=== PATIENT | male | born 1945 | race Caucasian/White ===

== ENCOUNTER 2023-05-17 11:24 | Emergency (ER) | payer MEDICARE ==
--- OUTSIDE RECORDS SUMMARY | 2023-05-17 11:29 | XMS REPORT | Continuity of Care Document ---
:1945 Author Organization [facility] t Address [address] [place] [address] [place] [id number] Care Team Providers Name Role Phone Aamir Rodarte Attending Clinician Unavailable Nathaniel Isaacs Attending Clinician Unavailable Ja Odonnell Attending Clinician Unavailable Physician, No Primary or Family Admitting Clinician UnavailNathaniel Anthony Admitting Clinician Unavailable Payers Payer Name Policy Type Policy Number Effective Date Expiration Date S [place] [id number] 2022 (MEDICARE 00:00:00 REPLACEMENT HMO) [employer] MEDICARE C1 [id number] 2021 Common 00:00:00 [facility] - [facility] Problems Condition Condition Condition Status Onset Resolution Last Treating Co mments Source Name Details Category Date Date Treatment Clinician Date [id number] Other Problem Common chronic [facility] pain - [facility] [id number] Body mass Problem Com mon index Spirit [BMI] - [facility] 31.0-31.9, [facility] [id number] Other Problem Common obesity Spirit due to - [facility] excess 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 - [facility] joints, [facility] Medical osteoarthr Center itis type [id number] Non-season Problem Com mon al [facility] allergic - [facility] rhinitis, [facility] [id number] Osteoporos Problem Com mon is, Spirit unspecifie - [facility] d osteoporos [facility], [facility] presence [id number] Chronic Problem Commo n gout [facility] without - [facility] tophus, [facility] cause, [facility] [id number] GERD Problem Common without [facility] esophagiti - [facility] [id number] Mixed Problem Common hyperlipid Spirit emia - [facility] [id number] Essential Problem Comm on hypertensi Spirit on - [facility] Allergies, Adverse Reactions, Alerts Allergy Allergy Status Severity Reaction(s) Onset Inactive Treating Comm ents Source Name Type Date Date Clinician No Known DA Active U [facility] Allergie 2-18 Clear s 00:00: Nguyen 00 [facility] Social History Social Habit Start Date Stop Date Quantity Comments Source History of Tobacco Current Smoker Co mmon [facility] - [facility] Use [facility] Sex Assigned At Com mon [facility] - [facility] Smoking Status Start Date Stop Date Source Current Smoker 2022-10-27 00:00:00 Common Spiri t - [facility] Medications Ordered Filled Start Stop Current Ordering Indication Dosage Frequency Signature Comments Components Source Medication Medication Date Date Medication? Clinician (SIG) Name Name Aspirin 81 Aspirin 81 No 1{table QD Aspirin 81 MG MG 8-16 t} MG 00:00: 00 Aspirin 81 Aspirin 81 No 1{table QD Aspirin 81 MG MG 8-16 t} MG 00:00: 00 Aspirin 81 Aspirin 81 2021- No 1{table QD Aspirin 81 MG MG 8-16 t} MG 00:00: 00 Aspirin 81 Aspirin 81 No 1{table QD Aspirin 81 MG MG 8-16 t} MG 00:00: 00 Aspirin 81 Aspirin 81 2021-0 No 1{table QD Aspirin 81 MG MG 8-16 t} MG 00:00: 00 Apixaban 5 Apixaban 5 No 2{table QD Apixaban 5 MG MG ts} MG Allopurinol Allopurinol No 2{table QD Allopurino 100 MG 100 MG ts} l 100 MG Lisinopril Lisinopril No 1{table QD Lisinopril 10 MG 10 MG t} 10 MG Tamsulosin Tamsulosin No 1{capsu QD Tamsulosin HCl 0.4 MG HCl 0.4 MG le} HCl 0.4 MG Gabapentin Gabapentin No 3{table QD Gabapentin 300 MG 300 MG ts} 300 MG Pantoprazol Pantoprazol No 1{table QD Pantoprazo e Sodium 20 e Sodium 20 t} le Sodium MG MG 20 MG Lisinopril Lisinopril No 1{table QD Lisinopril 10 MG 10 MG t} 10 MG Apixaban 5 Apixaban 5 No 2{table QD Apixaban 5 MG MG ts} MG Allopurinol Allopurinol No 2{table QD Allopurino 100 MG 100 MG ts} l 100 MG Metoprolol Metoprolol No 1{capsu QD Metoprolol Succinate Succinate le} Succinate 25 MG 25 MG 25 MG Pantoprazol Pantoprazol No 1{table QD Pantoprazo e Sodium 20 e Sodium 20 t} le Sodium MG MG 20 MG Tamsulosin Tamsulosin No 1{capsu QD Tamsulosin HCl 0.4 MG HCl 0.4 MG le} HCl 0.4 MG Allopurinol Allopurinol No 2{table QD Allopurino 100 MG 100 MG ts} l 100 MG Apixaban 5 Apixaban 5 No 2{table QD Apixaban 5 MG MG ts} MG Lisinopril Lisinopril No 1{table QD Lisinopril 10 MG 10 MG t} 10 MG Gabapentin Gabapentin No 3{table QD Gabapentin 300 MG 300 MG ts} 300 MG Metoprolol Metoprolol No 1{capsu QD Metoprolol Succinate Succinate le} Succinate 25 MG 25 MG 25 MG Tamsulosin Tamsulosin No 1{capsu QD Tamsulosin HCl 0.4 MG HCl 0.4 MG le} HCl 0.4 MG Gabapentin Gabapentin No 3{table QD Gabapentin 300 MG 300 MG ts} 300 MG Pantoprazol Pantoprazol No 1{table QD Pantoprazo e Sodium 20 e Sodium 20 t} le Sodium MG MG 20 MG Lisinopril Lisinopril No 1{table QD Lisinopril 10 MG 10 MG t} 10 MG Apixaban 5 Apixaban 5 No 2{table QD Apixaban 5 MG MG ts} MG Metoprolol Metoprolol No 1{capsu QD Metoprolol Succinate Succinate le} Succinate 25 MG 25 MG 25 MG Tamsulosin Tamsulosin No 1{capsu QD Tamsulosin HCl 0.4 MG HCl 0.4 MG le} HCl 0.4 MG Gabapentin Gabapentin No 3{table QD Gabapentin 300 MG 300 MG ts} 300 MG Pantoprazol Pantoprazol No 1{table QD Pantoprazo e Sodium 20 e Sodium 20 t} le Sodium MG MG 20 MG Lisinopril Lisinopril No 1{table QD Lisinopril 10 MG 10 MG t} 10 MG Apixaban 5 Apixaban 5 No 2{table QD Apixaban 5 MG MG ts} MG Metoprolol Metoprolol No 1{capsu QD Metoprolol Succinate Succinate le} Succinate 25 MG 25 MG 25 MG Lisinopril Lisinopril No 1{table QD Lisinopril 10 MG 10 MG t} 10 MG Gabapentin Gabapentin No 3{table QD Gabapentin 300 MG 300 MG ts} 300 MG Apixaban 5 Apixaban 5 No 2{table QD Apixaban 5 MG MG ts} MG Metoprolol Metoprolol No 1{capsu QD Metoprolol Succinate Succinate le} Succinate 25 MG 25 MG 25 MG Pantoprazol Pantoprazol No 1{table QD Pantoprazo e Sodium 20 e Sodium 20 t} le Sodium MG MG 20 MG Tamsulosin Tamsulosin No 1{capsu QD Tamsulosin HCl 0.4 MG HCl 0.4 MG le} HCl 0.4 MG Pantoprazol Pantoprazol No 1{table QD Pantoprazo e Sodium 20 e Sodium 20 t} le Sodium MG MG 20 MG Gabapentin Gabapentin No 3{table QD Gabapentin 300 MG 300 MG ts} 300 MG Apixaban 5 Apixaban 5 No 2{table QD Apixaban 5 MG MG ts} MG Lisinopril Lisinopril No 1{table QD Lisinopril 10 MG 10 MG t} 10 MG Metoprolol Metoprolol No 1{capsu QD Metoprolol Succinate Succinate le} Succinate 25 MG 25 MG 25 MG Tamsulosin Tamsulosin No 1{capsu QD Tamsulosin HCl 0.4 MG HCl 0.4 MG le} HCl 0.4 MG Pantoprazol Pantoprazol No 1{table QD Pantoprazo e Sodium 20 e Sodium 20 t} le Sodium MG MG 20 MG Gabapentin Gabapentin No 3{table QD Gabapentin 300 MG 300 MG ts} 300 MG Apixaban 5 Apixaban 5 No 2{table QD Apixaban 5 MG MG ts} MG Lisinopril Lisinopril No 1{table QD Lisinopril 10 MG 10 MG t} 10 MG Metoprolol Metoprolol No 1{capsu QD Metoprolol Succinate Succinate le} Succinate 25 MG 25 MG 25 MG Tamsulosin Tamsulosin No 1{capsu QD Tamsulosin HCl 0.4 MG HCl 0.4 MG le} HCl 0.4 MG Pantoprazol Pantoprazol No 1{table QD Pantoprazo e Sodium 20 e Sodium 20 t} le Sodium MG MG 20 MG Apixaban 5 Apixaban 5 No 2{table QD Apixaban 5 MG MG ts} MG Lisinopril Lisinopril No 1{table QD Lisinopril 10 MG 10 MG t} 10 MG Metoprolol Metoprolol No 1{capsu QD Metoprolol Succinate Succinate le} Succinate 25 MG 25 MG 25 MG Gabapentin Gabapentin No 3{table QD Gabapentin 300 MG 300 MG ts} 300 MG Allopurinol Allopurinol No 2{table QD Allopurino 100 MG 100 MG ts} l 100 MG Apixaban 5 Apixaban 5 No 2{table QD Apixaban 5 MG MG ts} MG Pantoprazol Pantoprazol No 1{table QD Pantoprazo e Sodium 20 e Sodium 20 t} le Sodium MG MG 20 MG Metoprolol Metoprolol No 1{capsu QD Metoprolol Succinate Succinate le} Succinate 25 MG 25 MG 25 MG Gabapentin Gabapentin No 3{table QD Gabapentin 300 MG 300 MG ts} 300 MG Tamsulosin Tamsulosin No 1{capsu QD Tamsulosin HCl 0.4 MG HCl 0.4 MG le} HCl 0.4 MG Lisinopril Lisinopril No 1{table QD Lisinopril 10 MG 10 MG t} 10 MG Allopurinol Allopurinol No 2{table QD Allopurino 100 MG 100 MG ts} l 100 MG Apixaban 5 Apixaban 5 No 2{table QD Apixaban 5 MG MG ts} MG Pantoprazol Pantoprazol No 1{table QD Pantoprazo e Sodium 20 e Sodium 20 t} le Sodium MG MG 20 MG Metoprolol Metoprolol No 1{capsu QD Metoprolol Succinate Succinate le} Succinate 25 MG 25 MG 25 MG Gabapentin Gabapentin No 3{table QD Gabapentin 300 MG 300 MG ts} 300 MG Tamsulosin Tamsulosin No 1{capsu QD Tamsulosin HCl 0.4 MG HCl 0.4 MG le} HCl 0.4 MG Lisinopril Lisinopril No 1{table QD Lisinopril 10 MG 10 MG t} 10 MG Allopurinol Allopurinol No 2{table QD Allopurino 100 MG 100 MG ts} l 100 MG Apixaban 5 Apixaban 5 No 2{table QD Apixaban 5 MG MG ts} MG Pantoprazol Pantoprazol No 1{table QD Pantoprazo e Sodium 20 e Sodium 20 t} le Sodium MG MG 20 MG Metoprolol Metoprolol No 1{capsu QD Metoprolol Succinate Succinate le} Succinate 25 MG 25 MG 25 MG Gabapentin Gabapentin No 3{table QD Gabapentin 300 MG 300 MG ts} 300 MG Tamsulosin Tamsulosin No 1{capsu QD Tamsulosin HCl 0.4 MG HCl 0.4 MG le} HCl 0.4 MG Lisinopril Lisinopril No 1{table QD Lisinopril 10 MG 10 MG t} 10 MG Allopurinol Allopurinol No 2{table QD Allopurino 100 MG 100 MG ts} l 100 MG Apixaban 5 Apixaban 5 No 2{table QD Apixaban 5 MG MG ts} MG Pantoprazol Pantoprazol No 1{table QD Pantoprazo e Sodium 20 e Sodium 20 t} le Sodium MG MG 20 MG Metoprolol Metoprolol No 1{capsu QD Metoprolol Succinate Succinate le} Succinate 25 MG 25 MG 25 MG Gabapentin Gabapentin No 3{table QD Gabapentin 300 MG 300 MG ts} 300 MG Tamsulosin Tamsulosin No 1{capsu QD Tamsulosin HCl 0.4 MG HCl 0.4 MG le} HCl 0.4 MG Lisinopril Lisinopril No 1{table QD Lisinopril 10 MG 10 MG t} 10 MG Allopurinol Allopurinol No 2{table QD Allopurino 100 MG 100 MG ts} l 100 MG Apixaban 5 Apixaban 5 No 2{table QD Apixaban 5 MG MG ts} MG Lisinopril Lisinopril No 1{table QD Lisinopril 10 MG 10 MG t} 10 MG Metoprolol Metoprolol No 1{capsu QD Metoprolol Succinate Succinate le} Succinate 25 MG 25 MG 25 MG Gabapentin Gabapentin No 3{table QD Gabapentin 300 MG 300 MG ts} 300 MG Tamsulosin Tamsulosin No 1{capsu QD Tamsulosin HCl 0.4 MG HCl 0.4 MG le} HCl 0.4 MG Pantoprazol Pantoprazol No 1{table QD Pantoprazo e Sodium 20 e Sodium 20 t} le Sodium MG MG 20 MG Allopurinol Allopurinol No 2{table QD Allopurino 100 MG 100 MG ts} l 100 MG Apixaban 5 Apixaban 5 No 2{table QD Apixaban 5 MG MG ts} MG Lisinopril Lisinopril No 1{table QD Lisinopril 10 MG 10 MG t} 10 MG Metoprolol Metoprolol No 1{capsu QD Metoprolol Succinate Succinate le} Succinate 25 MG 25 MG 25 MG Gabapentin Gabapentin No 3{table QD Gabapentin 300 MG 300 MG ts} 300 MG Pantoprazol Pantoprazol No 1{table QD Pantoprazo e Sodium 20 e Sodium 20 t} le Sodium MG MG 20 MG Plavix 75 Plavix 75 No 1{table QD Plavix 75 MG MG t} MG Tamsulosin Tamsulosin No 1{capsu QD Tamsulosin HCl 0.4 MG HCl 0.4 MG le} HCl 0.4 MG Allopurinol Allopurinol No 2{table QD Allopurino 100 MG 100 MG ts} l 100 MG Metoprolol Metoprolol No 1{capsu QD Metoprolol Succinate Succinate le} Succinate 25 MG 25 MG 25 MG Pantoprazol Pantoprazol No 1{table QD Pantoprazo e Sodium 20 e Sodium 20 t} le Sodium MG MG 20 MG Lisinopril Lisinopril No 1{table QD Lisinopril 10 MG 10 MG t} 10 MG Gabapentin Gabapentin No 3{table QD Gabapentin 300 MG 300 MG ts} 300 MG Lisinopril Lisinopril No Lisinopril 10 MG 10 MG 10 MG Plavix 75 Plavix 75 No 1{table QD Plavix 75 MG MG t} MG Tamsulosin Tamsulosin No 1{capsu QD Tamsulosin HCl 0.4 MG HCl 0.4 MG le} HCl 0.4 MG Pantoprazol Pantoprazol No 1{table QD Pantoprazo e Sodium 20 e Sodium 20 t} le Sodium MG MG 20 MG Metoprolol Metoprolol No 1{capsu QD Metoprolol Succinate Succinate le} Succinate 25 MG 25 MG 25 MG Gabapentin Gabapentin No 3{table QD Gabapentin 300 MG 300 MG ts} 300 MG Lisinopril Lisinopril No 1{table QD Lisinopril 10 MG 10 MG t} 10 MG Allopurinol Allopurinol No 2{table QD Allopurino 100 MG 100 MG ts} l 100 MG Lisinopril Lisinopril No Lisinopril 10 MG 10 MG 10 MG Gabapentin Gabapentin No 3{table QD Gabapentin 300 MG 300 MG ts} 300 MG Plavix 75 Plavix 75 No 1{table QD Plavix 75 MG MG t} MG Lisinopril Lisinopril No Lisinopril 10 MG 10 MG 10 MG Tamsulosin Tamsulosin No 1{capsu QD Tamsulosin HCl 0.4 MG HCl 0.4 MG le} HCl 0.4 MG Allopurinol Allopurinol No 2{table QD Allopurino 100 MG 100 MG ts} l 100 MG Lisinopril Lisinopril No 1{table QD Lisinopril 10 MG 10 MG t} 10 MG Pantoprazol Pantoprazol No 1{table QD Pantoprazo e Sodium 20 e Sodium 20 t} le Sodium MG MG 20 MG Metoprolol Metoprolol No 1{capsu QD Metoprolol Succinate Succinate le} Succinate 25 MG 25 MG 25 MG Gabapentin Gabapentin No 3{table QD Gabapentin 300 MG 300 MG ts} 300 MG Pantoprazol Pantoprazol No 1{table QD Pantoprazo e Sodium 20 e Sodium 20 t} le Sodium MG MG 20 MG Metoprolol Metoprolol No 1{capsu QD Metoprolol Succinate Succinate le} Succinate 25 MG 25 MG 25 MG Tamsulosin Tamsulosin No 1{capsu QD Tamsulosin HCl 0.4 MG HCl 0.4 MG le} HCl 0.4 MG Allopurinol Allopurinol No 2{table QD Allopurino 100 MG 100 MG ts} l 100 MG Lisinopril Lisinopril No 1{table QD Lisinopril 10 MG 10 MG t} 10 MG Plavix 75 Plavix 75 No 1{table QD Plavix 75 MG MG t} MG Lisinopril Lisinopril No Lisinopril 10 MG 10 MG 10 MG Pantoprazol Pantoprazol No 1{table QD Pantoprazo e Sodium 20 e Sodium 20 t} le Sodium MG MG 20 MG Lisinopril Lisinopril No Lisinopril 10 MG 10 MG 10 MG Aspirin 81 Aspirin 81 No 1{table QD Aspirin 81 MG MG t} MG Plavix 75 Plavix 75 No 1{table QD Plavix 75 MG MG t} MG Lisinopril Lisinopril No 1{table QD Lisinopril 10 MG 10 MG t} 10 MG Tamsulosin Tamsulosin No 1{capsu QD Tamsulosin HCl 0.4 MG HCl 0.4 MG le} HCl 0.4 MG Gabapentin Gabapentin No 3{table QD Gabapentin 300 MG 300 MG ts} 300 MG Allopurinol Allopurinol No 2{table QD Allopurino 100 MG 100 MG ts} l 100 MG Metoprolol Metoprolol No 1{capsu QD Metoprolol Succinate Succinate le} Succinate 25 MG 25 MG 25 MG Pantoprazol Pantoprazol No 1{table QD Pantoprazo e Sodium 20 e Sodium 20 t} le Sodium MG MG 20 MG Lisinopril Lisinopril No Lisinopril 10 MG 10 MG 10 MG Aspirin 81 Aspirin 81 No 1{table QD Aspirin 81 MG MG t} MG Plavix 75 Plavix 75 No 1{table QD Plavix 75 MG MG t} MG Lisinopril Lisinopril No 1{table QD Lisinopril 10 MG 10 MG t} 10 MG Tamsulosin Tamsulosin No 1{capsu QD Tamsulosin HCl 0.4 MG HCl 0.4 MG le} HCl 0.4 MG Gabapentin Gabapentin No 3{table QD Gabapentin 300 MG 300 MG ts} 300 MG Allopurinol Allopurinol No 2{table QD Allopurino 100 MG 100 MG ts} l 100 MG Metoprolol Metoprolol No 1{capsu QD Metoprolol Succinate Succinate le} Succinate 25 MG 25 MG 25 MG Pantoprazol Pantoprazol No 1{table QD Pantoprazo e Sodium 20 e Sodium 20 t} le Sodium MG MG 20 MG Lisinopril Lisinopril No Lisinopril 10 MG 10 MG 10 MG Aspirin 81 Aspirin 81 No 1{table QD Aspirin 81 MG MG t} MG Plavix 75 Plavix 75 No 1{table QD Plavix 75 MG MG t} MG Lisinopril Lisinopril No 1{table QD Lisinopril 10 MG 10 MG t} 10 MG Tamsulosin Tamsulosin No 1{capsu QD Tamsulosin HCl 0.4 MG HCl 0.4 MG le} HCl 0.4 MG Gabapentin Gabapentin No 3{table QD Gabapentin 300 MG 300 MG ts} 300 MG Allopurinol Allopurinol No 2{table QD Allopurino 100 MG 100 MG ts} l 100 MG Metoprolol Metoprolol No 1{capsu QD Metoprolol Succinate Succinate le} Succinate 25 MG 25 MG 25 MG Pantoprazol Pantoprazol No 1{table QD Pantoprazo e Sodium 20 e Sodium 20 t} le Sodium MG MG 20 MG Lisinopril Lisinopril No Lisinopril 10 MG 10 MG 10 MG Metoprolol Metoprolol No 1{capsu QD Metoprolol Succinate Succinate le} Succinate 25 MG 25 MG 25 MG Aspirin 81 Aspirin 81 No 1{table QD Aspirin 81 MG MG t} MG Lisinopril Lisinopril No 1{table QD Lisinopril 10 MG 10 MG t} 10 MG Tamsulosin Tamsulosin No 1{capsu QD Tamsulosin HCl 0.4 MG HCl 0.4 MG le} HCl 0.4 MG Gabapentin Gabapentin No 3{table QD Gabapentin 300 MG 300 MG ts} 300 MG Plavix 75 Plavix 75 No 1{table QD Plavix 75 MG MG t} MG Tamsulosin Tamsulosin No 1{capsu QD Tamsulosin HCl 0.4 MG HCl 0.4 MG le} HCl 0.4 MG Lisinopril Lisinopril No Lisinopril 10 MG 10 MG 10 MG Metoprolol Metoprolol No 1{capsu QD Metoprolol Succinate Succinate le} Succinate 25 MG 25 MG 25 MG Lisinopril Lisinopril No 1{table QD Lisinopril 10 MG 10 MG t} 10 MG Plavix 75 Plavix 75 No 1{table QD Plavix 75 MG MG t} MG Gabapentin Gabapentin No 3{table QD Gabapentin 300 MG 300 MG ts} 300 MG Aspirin 81 Aspirin 81 No 1{table QD Aspirin 81 MG MG t} MG Pantoprazol Pantoprazol No 1{table QD Pantoprazo e Sodium 20 e Sodium 20 t} le Sodium MG MG 20 MG Lisinopril Lisinopril No Lisinopril 10 MG 10 MG 10 MG Metoprolol Metoprolol No 1{capsu QD Metoprolol Succinate Succinate le} Succinate 25 MG 25 MG 25 MG Lisinopril Lisinopril No 1{table QD Lisinopril 10 MG 10 MG t} 10 MG Plavix 75 Plavix 75 No 1{table QD Plavix 75 MG MG t} MG Gabapentin Gabapentin No 3{table QD Gabapentin 300 MG 300 MG ts} 300 MG Aspirin 81 Aspirin 81 No 1{table QD Aspirin 81 MG MG t} MG Pantoprazol Pantoprazol No 1{table QD Pantoprazo e Sodium 20 e Sodium 20 t} le Sodium MG MG 20 MG Lisinopril Lisinopril No Lisinopril 10 MG 10 MG 10 MG Metoprolol Metoprolol No 1{capsu QD Metoprolol Succinate Succinate le} Succinate 25 MG 25 MG 25 MG Lisinopril Lisinopril No 1{table QD Lisinopril 10 MG 10 MG t} 10 MG Plavix 75 Plavix 75 No 1{table QD Plavix 75 MG MG t} MG Gabapentin Gabapentin No 3{table QD Gabapentin 300 MG 300 MG ts} 300 MG Aspirin 81 Aspirin 81 No 1{table QD Aspirin 81 MG MG t} MG Pantoprazol Pantoprazol No 1{table QD Pantoprazo e Sodium 20 e Sodium 20 t} le Sodium MG MG 20 MG Gabapentin Gabapentin No 3{table QD Gabapentin 300 MG 300 MG ts} 300 MG Lisinopril Lisinopril No 1{table QD Lisinopril 10 MG 10 MG t} 10 MG Pantoprazol Pantoprazol No 1{table QD Pantoprazo e Sodium 20 e Sodium 20 t} le Sodium MG MG 20 MG Plavix 75 Plavix 75 No 1{table QD Plavix 75 MG MG t} MG Lisinopril Lisinopril No Lisinopril 10 MG 10 MG 10 MG Metoprolol Metoprolol No 1{capsu QD Metoprolol Succinate Succinate le} Succinate 25 MG 25 MG 25 MG Aspirin 81 Aspirin 81 No 1{table QD Aspirin 81 MG MG t} MG Metoprolol Metoprolol No 1{capsu QD Metoprolol Succinate Succinate le} Succinate 25 MG 25 MG 25 MG Gabapentin Gabapentin No 3{table QD Gabapentin 300 MG 300 MG ts} 300 MG Lisinopril Lisinopril No 1{table QD Lisinopril 10 MG 10 MG t} 10 MG Lisinopril Lisinopril No Lisinopril 10 MG 10 MG 10 MG Gabapentin Gabapentin No 3{table QD Gabapentin 300 MG 300 MG ts} 300 MG Pantoprazol Pantoprazol No 1{table QD Pantoprazo e Sodium 20 e Sodium 20 t} le Sodium MG MG 20 MG Tamsulosin Tamsulosin No 1{capsu QD Tamsulosin HCl 0.4 MG HCl 0.4 MG le} HCl 0.4 MG Aspirin 81 Aspirin 81 No 1{table QD Aspirin 81 MG MG t} MG Allopurinol Allopurinol No 2{table QD Allopurino 100 MG 100 MG ts} l 100 MG Plavix 75 Plavix 75 No 1{table QD Plavix 75 MG MG t} MG Plavix 75 Plavix 75 No 1{table QD Plavix 75 MG MG t} MG Lisinopril Lisinopril No Lisinopril 10 MG 10 MG 10 MG Tamsulosin Tamsulosin No 1{capsu QD Tamsulosin HCl 0.4 MG HCl 0.4 MG le} HCl 0.4 MG Allopurinol Allopurinol No 2{table QD Allopurino 100 MG 100 MG ts} l 100 MG Lisinopril Lisinopril No 1{table QD Lisinopril 10 MG 10 MG t} 10 MG Pantoprazol Pantoprazol No 1{table QD Pantoprazo e Sodium 20 e Sodium 20 t} le Sodium MG MG 20 MG Metoprolol Metoprolol No 1{capsu QD Metoprolol Succinate Succinate le} Succinate 25 MG 25 MG 25 MG Gabapentin Gabapentin No 3{table QD Gabapentin 300 MG 300 MG ts} 300 MG Metoprolol Metoprolol No 1{capsu QD Metoprolol Succinate Succinate le} Succinate 25 MG 25 MG 25 MG Pantoprazol Pantoprazol No 1{table QD Pantoprazo e Sodium 20 e Sodium 20 t} le Sodium MG MG 20 MG Apixaban 5 Apixaban 5 No 2{table QD Apixaban 5 MG MG ts} MG Allopurinol Allopurinol No 2{table QD Allopurino 100 MG 100 MG ts} l 100 MG Lisinopril Lisinopril No 1{table QD Lisinopril 10 MG 10 MG t} 10 MG Tamsulosin Tamsulosin No 1{capsu QD Tamsulosin HCl 0.4 MG HCl 0.4 MG le} HCl 0.4 MG Gabapentin Gabapentin No 3{table QD Gabapentin 300 MG 300 MG ts} 300 MG Metoprolol Metoprolol No 1{capsu QD Metoprolol Succinate Succinate le} Succinate 25 MG 25 MG 25 MG Pantoprazol Pantoprazol No 1{table QD Pantoprazo e Sodium 20 e Sodium 20 t} le Sodium MG MG 20 MG Tamsulosin Tamsulosin 3- No 1{capsu QD Tamsulosin HCl 0.4 MG HCl 0.4 MG 12-19 le} HCl 0.4 MG 00:00 :00 Tamsulosin Tamsulosin 3- No 1{capsu QD Tamsulosin HCl 0.4 MG HCl 0.4 MG 12-19 le} HCl 0.4 MG 00:00 :00 Tamsulosin Tamsulosin 3- No 1{capsu QD Tamsulosin HCl 0.4 MG HCl 0.4 MG 12-19 le} HCl 0.4 MG 00:00 :00 Allopurinol Allopurinol 3- No 2{table QD Allopurino 100 MG 100 MG 11-11 ts} l 100 MG 00:00 :00 Allopurinol Allopurinol 3- No 2{table QD Allopurino 100 MG 100 MG 11-11 ts} l 100 MG 00:00 :00 Allopurinol Allopurinol 3- No 2{table QD Allopurino 100 MG 100 MG 11-11 ts} l 100 MG 00:00 :00 Allopurinol Allopurinol 3- No 2{table QD Allopurino 100 MG 100 MG 11-11 ts} l 100 MG 00:00 :00 Allopurinol Allopurinol 3- No 2{table QD Allopurino 100 MG 100 MG 11-11 ts} l 100 MG 00:00 :00 Tamsulosin Tamsulosin 2- No 1{capsu QD Tamsulosin HCl 0.4 MG HCl 0.4 MG 07-02 le} HCl 0.4 MG 00:00 :00 Tamsulosin Tamsulosin 2- No 1{capsu QD Tamsulosin HCl 0.4 MG HCl 0.4 MG 04-05 le} HCl 0.4 MG 00:00 :00 Allopurinol Allopurinol 2- No 2{table QD Allopurino 100 MG 100 MG 01-12 ts} l 100 MG 00:00 :00 Allopurinol Allopurinol 2021- No 2{table QD Allopurino 100 MG 100 MG 01-12 ts} l 100 MG 00:00 :00 Allopurinol Allopurinol 2021- No 2{table QD Allopurino 100 MG 100 MG 01-12 ts} l 100 MG 00:00 :00 Allopurinol Allopurinol 2021- No 2{table QD Allopurino 100 MG 100 MG 01-12 ts} l 100 MG 00:00 :00 Allopurinol Allopurinol 2021- No 2{table QD Allopurino 100 MG 100 MG 01-12 ts} l 100 MG 00:00 :00 Allopurinol Allopurinol 2021- No 2{table QD Allopurino 100 MG 100 MG 01-12 ts} l 100 MG 00:00 :00 Tamsulosin Tamsulosin 2021- No 1{capsu QD Tamsulosin HCl 0.4 MG HCl 0.4 MG 12-28 le} HCl 0.4 MG 00:00 :00 Immunizations Ordered Immunization Filled Immunization Date Status Commen ts Source Name Name FLUZONE HIGH DOSE FLUZONE HIGH DOSE 2022-07-13 Completed [facility] OVER 65 OVER 65 09:38:00 - [facility] FLUZONE HIGH DOSE FLUZONE HIGH DOSE 2022-07-13 Completed [facility] OVER 65 OVER 65 09:38:00 - [facility] FLUZONE HIGH DOSE FLUZONE HIGH DOSE 2022-07-13 Completed [facility] OVER 65 OVER 65 09:38:00 [facility] FLUZONE HIGH DOSE FLUZONE HIGH DOSE 2022-07-13 Completed [facility] OVER 65 OVER 65 09:38:00 - [facility] FLUZONE HIGH DOSE FLUZONE HIGH DOSE 2022-07-13 Completed [facility] OVER 65 OVER 65 09:38:00 - [facility] FLUZONE HIGH DOSE FLUZONE HIGH DOSE 2022-07-13 Completed [facility] OVER 65 OVER 65 09:38:00 - [facility] FLUZONE HIGH DOSE FLUZONE HIGH DOSE 2022-07-13 Completed [facility] OVER 65 OVER 65 09:38:00 [facility] FLUZONE HIGH DOSE FLUZONE HIGH DOSE 2022-07-13 Completed [facility] OVER 65 OVER 65 09:38:00 [facility] FLUZONE HIGH DOSE FLUZONE HIGH DOSE 2022-07-13 Completed [facility] OVER 65 OVER 65 09:38:00 - [facility] FLUZONE HIGH DOSE FLUZONE HIGH DOSE 2022-07-13 Completed [facility] OVER 65 OVER 65 09:38:00 - [facility] FluAD FluAD 2020-07-24 Completed [facility] 13:56:00 - [facility] FluAD FluAD 2020-07-24 Completed [facility] 13:56:00 - [facility] FluAD FluAD 2020-07-24 Completed [facility] 13:56:00 - [facility] FluAD FluAD 2020-07-24 Completed [facility] 13:56:00 - [facility] FluAD FluAD 2020-07-24 Completed [facility] 13:56:00 - [facility] FluAD FluAD 2020-07-24 Completed [facility] 13:56:00 - [facility] FluAD FluAD 2020-07-24 Completed [facility] 13:56:00 - [facility] FluAD FluAD 2020-07-24 Completed [facility] 13:56:00 - [facility] FluAD FluAD 2020-07-24 [facility]pleted [facility] FluAD FluAD 2020-07-24 Completed [facility]:56:00 - [facility] FluAD FluAD 2020-07-24 Completed [facility]:56:00 - [facility] FluAD FluAD 2020-07-24 Completed [facility] 13:56:00 - [facility] FluAD FluAD 2020-07-24 Completed [facility]:56:00 - [facility] FluAD FluAD 2020-07-24 Completed [facility]:56:00 - [facility] FluAD FluAD 2020-07-24 Completed [facility]:56:00 - [facility] FluAD FluAD 2020-07-24 Completed [facility]:56:00 - [facility] FluAD FluAD 2020-07-24 Completed [facility]:56:00 - [facility] FluAD FluAD 2020-07-24 Completed [facility]:56:00 - [facility] FluAD FluAD 2020-07-24 Completed [facility] 13:56:00 - [facility] FluAD FluAD 2020-07-24 Completed [facility] 13:56:00 - [facility] FluAD FluAD 2020-07-24 Completed [facility]:56:00 - [facility] FluAD FluAD 2020-07-24 Completed [facility]:56:00 - [facility] FluAD FluAD 2020-07-24 Completed [facility]:56:00 - [facility] FluAD FluAD 2020-07-24 Completed [facility] 13:56:00 - [facility] FluAD FluAD 2020-07-24 Completed [facility]:56:00 - [facility] FluAD FluAD 2020-07-24 Completed [facility]:56:00 - [facility] FluAD FluAD 2020-07-24 Completed [facility]:56:00 - [facility] FluAD FluAD 2020-07-24 Completed [facility] 13:56:00 - [facility] FluAD FluAD 2020-07-24 Completed [facility]:56:00 - [facility] FluAD FluAD 2020-07-24 Completed [facility]:56:00 - [facility] Prevnar 13 (PCV13) Prevnar 13 (PCV13) 2016-09-23 Completed [facility]:56:00 - [facility] Prevnar 13 (PCV13) Prevnar 13 (PCV13) 2016-09-23 Completed [facility]:56:00 - [facility] Prevnar 13 (PCV13) Prevnar 13 (PCV13) 2016-09-23 Completed [facility]:56:00 - [facility] Prevnar 13 (PCV13) Prevnar 13 (PCV13) 2016-09-23 Completed [facility]:56:00 - [facility] Prevnar 13 (PCV13) Prevnar 13 (PCV13) 2016-09-23 Completed [facility] 13:56:00 [facility] Prevnar 13 (PCV13) Prevnar 13 (PCV13) 2016-09-23 Completed [facility]:56:00 - [facility] Prevnar 13 (PCV13) Prevnar 13 (PCV13) 2016-09-23 Completed [facility]:56:00 - [facility] Prevnar 13 (PCV13) Prevnar 13 (PCV13) 2016-09-23 [facility]pleted [facility] 13:56:00 [facility] Prevnar 13 (PCV13) Prevnar 13 (PCV13) 2016-09-23 Completed [facility] 13:56:00 [facility] Prevnar 13 (PCV13) Prevnar 13 (PCV13) 2016-09-23 Completed [facility]:56:00 - [facility] Prevnar 13 (PCV13) Prevnar 13 (PCV13) 2016-09-23 [facility]pleted [facility]:56:00 [facility] Prevnar 13 (PCV13) Prevnar 13 (PCV13) 2016-09-23 Completed [facility]:56:00 - [facility] Prevnar 13 (PCV13) Prevnar 13 (PCV13) 2016-09-23 [facility]pleted [facility]:56:00 - [facility] Prevnar 13 (PCV13) Prevnar 13 (PCV13) 2016-09-23 [facility]pleted [facility]:56:00 - [facility] Prevnar 13 (PCV13) Prevnar 13 (PCV13) 2016-09-23 [facility]pleted [facility]:56:00 - [facility] Prevnar 13 (PCV13) Prevnar 13 (PCV13) 2016-09-23 [facility]pleted [facility]:56:00 [facility] Prevnar 13 (PCV13) Prevnar 13 (PCV13) 2016-09-23 [facility]pleted [facility]:56:00 [facility] Prevnar 13 (PCV13) Prevnar 13 (PCV13) 2016-09-23 [facility]pleted [facility]:56:00 [facility] Prevnar 13 (PCV13) Prevnar 13 (PCV13) 2016-09-23 [facility]pleted [facility] 13:56:00 [facility] Prevnar 13 (PCV13) Prevnar 13 (PCV13) 2016-09-23 [facility]pleted [facility] 13:56:00 [facility] Prevnar 13 (PCV13) Prevnar 13 (PCV13) 2016-09-23 Completed [facility]:56:00 - [facility] Prevnar 13 (PCV13) Prevnar 13 (PCV13) 2016-09-23 Completed [facility]:56:00 - [facility] Prevnar 13 (PCV13) Prevnar 13 (PCV13) 2016-09-23 [facility]pleted [facility]:56:00 - [facility] Prevnar 13 (PCV13) Prevnar 13 (PCV13) 2016-09-23 [facility]pleted [facility]:56:00 - [facility] Prevnar 13 (PCV13) Prevnar 13 (PCV13) 2016-09-23 [facility]pleted [facility]:56:00 - [facility] Prevnar 13 (PCV13) Prevnar 13 (PCV13) 2016-09-23 [facility]pleted [facility]:56:00 - [facility] Prevnar 13 (PCV13) Prevnar 13 (PCV13) 2016-09-23 Completed [facility]:56:00 - [facility] Prevnar 13 (PCV13) Prevnar 13 (PCV13) 2016-09-23 [facility]pleted [facility]:56:00 - [facility] Prevnar 13 (PCV13) Prevnar 13 (PCV13) 2016-09-23 [facility]pleted [facility]:56:00 - [facility] Prevnar 13 (PCV13) Prevnar 13 (PCV13) 2016-09-23 [facility]pleted [facility] 13:56:00 - [facility] Shingrix Shingrix 2015-09-23 Completed [facility] 13:56:00 - [facility] Shingrix Shingrix 2015-09-23 Completed [facility] 13:56:00 - [facility] Shingrix Shingrix 2015-09-23 Completed [facility] 13:56:00 - [facility] Shingrix Shingrix 2015-09-23 Completed [facility] 13:56:00 - [facility] Shingrix Shingrix 2015-09-23 Completed [facility] 13:56:00 - [facility] Shingrix Shingrix 2015-09-23 Completed [facility] 13:56:00 - [facility] Shingrix Shingrix 2015-09-23 Completed [facility] 13:56:00 - [facility] Shingrix Shingrix 2015-09-23 Completed [facility] 13:56:00 - [facility] Shingrix Shingrix 2015-09-23 Completed [facility] 13:56:00 - [facility] Shingrix Shingrix 2015-09-23 Completed [facility] 13:56:00 - [facility] Shingrix Shingrix 2015-09-23 Completed [facility] 13:56:00 - [facility] Shingrix Shingrix 2015-09-23 Completed [facility] 13:56:00 - [facility] Shingrix Shingrix 2015-09-23 Completed [facility] 13:56:00 - [facility] Shingrix Shingrix 2015-09-23 Completed [facility] 13:56:00 - [facility] Shingrix Shingrix 2015-09-23 Completed [facility] 13:56:00 - [facility] Shingrix Shingrix 2015-09-23 Completed [facility] 13:56:00 - [facility] Shingrix Shingrix 2015-09-23 Completed [facility] 13:56:00 - [facility] Shingrix Shingrix 2015-09-23 Completed [facility] 13:56:00 - [facility] Shingrix Shingrix 2015-09-23 Completed [facility] 13:56:00 - [facility] Shingrix Shingrix 2015-09-23 Completed [facility] 13:56:00 - [facility] Shingrix Shingrix 2015-09-23 Completed [facility] 13:56:00 - [facility] Shingrix Shingrix 2015-09-23 Completed [facility] 13:56:00 - [facility] Shingrix Shingrix 2015-09-23 Completed [facility] 13:56:00 - [facility] Shingrix Shingrix 2015-09-23 Completed [facility] 13:56:00 - [facility] Shingrix Shingrix 2015-09-23 Completed [facility] 13:56:00 - [facility] Shingrix Shingrix 2015-09-23 Completed [facility] 13:56:00 - [facility] Shingrix Shingrix 2015-09-23 Completed [facility] 13:56:00 - [facility] Shingrix Lingix 2015-09-23 Completed [facility] 13:56:00 - [facility] Shingrix Shinmarvinix 2015-09-23 Completed [facility] 13:56:00 - [facility] Shingrix Shingrix 2015-09-23 Completed [facility] 13:56:00 - [facility] Vital Signs Vital Name Observation Time Observation Value Comments Source height 2022-11-01 14:50:00 73 [in_i] [facility] weight 2022-11-01 14:50:00 235 [lb_av] [facility] temperature 2022-11-01 14:50:00 97.4 [degF] [facility] bmi 2022-11-01 14:50:00 31 kg/m2 [facility] blood pressure 2022-11-01 14:50:00 128 mm[Hg] [facility] - systolic [facility] blood pressure 2022-11-01 14:50:00 73 mm[Hg] [facility] - diastolic [facility] height 2022-08-10 13:10:00 73 [in_i] [facility] weight 2022-08-10 13:10:00 233 [lb_av] [facility] temperature 2022-08-10 13:10:00 98 [degF] [facility] pirit [facility] bmi 2022-08-10 13:10:00 30.74 kg/m2 [facility] blood pressure 2022-08-10 13:10:00 125 mm[Hg] [facility] - systolic [facility] blood pressure 2022-08-10 13:10:00 72 mm[Hg] [facility] - diastolic [facility] height 2022-05-09 16:00:00 73 [in_i] [facility] weight 2022-05-09 16:00:00 235 [lb_av] [facility] temperature 2022-05-09 16:00:00 97 [degF] [facility] bmi 2022-05-09 16:00:00 31 kg/m2 [facility] blood pressure 2022-05-09 16:00:00 128 mm[Hg] [facility] - systolic [facility] blood pressure 2022-05-09 16:00:00 59 mm[Hg] [facility] - diastolic [facility] height 2022-02-07 15:40:00 73 [in_i] [facility] weight 2022-02-07 15:40:00 235.2 [lb_av] [facility] temperature 2022-02-07 15:40:00 99.3 [degF] [facility] bmi 2022-02-07 15:40:00 31.03 kg/m2 [facility] oximetry 2022-02-07 15:40:00 96 % [facility] respiratory rate 2022-02-07 15:40:00 17 /min Comm on [facility] blood pressure 2022-02-07 15:40:00 131 mm[Hg] [facility] blood pressure 2022-02-07 15:40:00 67 mm[Hg] [facility] diastolic [facility] height 2021-10-04 13:40:00 73 [in_i] [facility] weight 2021-10-04 13:40:00 231.1 [lb_av] [facility] temperature 2021-10-04 13:40:00 98.6 [degF] [facility] bmi 2021-10-04 13:40:00 30.49 kg/m2 [facility] oximetry 2021-10-04 13:40:00 96 % [facility] respiratory rate 2021-10-04 13:40:00 17 /min Comm on [facility] blood pressure 2021-10-04 13:40:00 131 mm[Hg] [facility] - systolic [facility] blood pressure 2021-10-04 13:40:00 73 mm[Hg] [facility] diastolic [facility] height 2021-10-04 13:10:00 73 [in_i] [facility] weight 2021-10-04 13:10:00 231.3 [lb_av] Common [facility] temperature 2021-10-04 13:10:00 98.6 [degF] [facility] bmi 2021-10-04 13:10:00 30.51 kg/m2 [facility] oximetry 2021-10-04 13:10:00 96 % [facility] respiratory rate 2021-10-04 13:10:00 17 /min Comm on [facility] blood pressure 2021-10-04 13:10:00 131 mm[Hg] [facility] - systolic [facility] blood pressure 2021-10-04 13:10:00 73 mm[Hg] [facility] diastolic [facility] height 2021-08-10 13:30:00 73 [in_i] Common [facility] weight 2021-08-10 13:30:00 227.1 [lb_av] [facility] temperature 2021-08-10 13:30:00 98.2 [degF] [facility] bmi 2021-08-10 13:30:00 29.96 kg/m2 [facility] oximetry 2021-08-10 13:30:00 96 % [facility] respiratory rate 2021-08-10 13:30:00 18 /min Comm on [facility] blood pressure 2021-08-10 13:30:00 131 mm[Hg] [facility] blood pressure 2021-08-10 13:30:00 71 mm[Hg] Common [facility] Procedures Procedure Date / Time Performed Performing Clinician Hari soto [id number] 2022-02-01 00:00:00 MACK [facility] Encounters Start End Encounter Admission Attending Care Care Encounter Source Date/Time Date/Time Type Type Clinicians Facility Department ID 2023-01-26 Outpatient [place], STLMLC STLMLC [id number] Common 10:55:01 Aamir [id number] [facility] 2022-10-30 Outpatient [place], STLMLC STLMLC [id number] Common 09:52:01 Aamir [id number] [facility] 2021-10-19 Outpatient [place], STLMLC STLMLC [id number] Common 14:14:36 Aamir [id number] [facility] 2023-01-26 2023-01-26 Outpatient DMG DM [id number] [facility] 00:00:00 00:00:00 [id number] [facility] 2022-11-01 2022-11-01 OFFICE STLMLC STLMLC [id number] Co mmon 00:00:00 00:00:00 VISIT [facility] LEVEL 4 [facility] 2022-10-23 2022-10-23 (TEL) STLMLC STLMLC [id number] Co mmon 00:00:00 00:00:00 [facility] 2022-10-19 2022-10-19 (TEL) STLMLC STLMLC [id number] Co m[facility] 00:00:00 00:00:00 [facility] 2022-09-19 2022-09-19 (WEB) STLMLC STLMLC [id number] Co m[facility] 00:00:00 00:00:00 [facility] 2022-08-24 2022-08-24 (WEB) STLMLC STLMLC [id number] Co mmon 00:00:00 00:00:00 [facility] 2022-08-23 2022-08-23 Outpatient DMG [id number] [facility] 00:00:00 00:00:00 [id number] [facility] 2022-08-13 2022-08-13 (WEB) STLMLC STLMLC [id number] Co mmon 00:00:00 00:00:00 [facility] 2022-08-10 2022-08-10 OFFICE STLMLC STLMLC [id number] Co mmon 00:00:00 00:00:00 VISIT [facility] PT - CHI LEVEL 4 [facility] 2022-08-10 2022-08-10 (TEL) STLMLC STLMLC [id number] Co mmon 00:00:00 00:00:00 [facility] 2022-08-09 2022-08-09 (WEB) STLMLC STLMLC [id number] Co mmon 00:00:00 00:00:00 [facility] 2022-07-13 2022-07-13 (INJ) STLMLC STLMLC [id number] Co m[facility] 00:00:00 00:00:00 Injection Spir [facility] 2022-07-04 2022-07-04 (WEB) STLMLC STLMLC [id number] Co mmon 00:00:00 00:00:00 [facility] 2022-05-25 2022-05-25 (WEB) STLMLC STLMLC [id number] Co mmon 00:00:00 00:00:00 [facility] 2022-05-09 2022-05-09 OFFICE STLMLC STLMLC [id number] Co mmon 00:00:00 00:00:00 VISIT [facility] PT - CHI LEVEL 4 [facility] 2022-04-03 2022-04-03 (WEB) STLMLC STLMLC [id number] Co mmon 00:00:00 00:00:00 [facility] 2022-03-08 2022-03-08 Outpatient MORGAN Franco [id number] [facility] 05:15:00 05:15:00 Nathaniel Cox [facility] 2022-02-19 2022-02-19 (WEB) STLMLC STLMLC [id number] Co mmon 00:00:00 00:00:00 [facility] 2022-02-16 2022-02-16 (TEL) STLMLC STLMLC [id number] Co mmon 00:00:00 00:00:00 [facility] 2022-02-10 2022-02-10 (TEL) STLMLC STLMLC [id number] Co mmon 00:00:00 00:00:00 [facility] 2022-02-07 2022-02-07 OFFICE STLMLC STLMLC [id number] Co mmon 00:00:00 00:00:00 VISIT [facility] LEVEL 4 [facility] 2022-02-07 2022-02-07 (TEL) STLMLC STLMLC [id number] Co mmon 00:00:00 00:00:00 [facility] 2022-02-01 2022-02-01 Inpatient EL Shital, HCACL CARD [id number] [facility] 05:43:00 14:52:00 Nathaniel 74 [facility] 2022-01-04 2022-01-04 (WEB) STLMLC STLMLC [id number] Co mmon 00:00:00 00:00:00 [facility] 2021-12-13 2021-12-13 (TEL) STLMLC STLMLC [id number] Co m[facility] 00:00:00 00:00:00 [facility] 2021-11-20 2021-11-20 (WEB) STLMLC STLMLC [id number] Co mmon 00:00:00 00:00:00 [facility] 2021-11-14 2021-11-14 Inpatient EL Peterson HCACL OUTD [id number] [facility] 05:15:00 05:15:00 Ja Bernard 89 [facility] 2021-11-04 2021-11-04 (WEB) STLMLC STLMLC [id number] Co mmon 00:00:00 00:00:00 [facility] 2021-10-14 2021-10-14 (WEB) STLMLC STLMLC [id number] Co mmon 00:00:00 00:00:00 [facility] 2021-10-04 2021-10-04 [facility] [id number] Common 00:00:00 00:00:00 [facility] WELLNESS - CHI VISIT [facility] 2021-10-04 2021-10-04 OFFICE STLC STLC [id number] Co mmon 00:00:00 00:00:00 [facility]IT [facility] ESTAB PT - CHI LEVEL 4 [facility] 2021-09-29 2021-09-29 (WEB) STLC STLC [id number] Co mmon 00:00:00 00:00:00 [facility] - CHI [facility] 2021-09-02 2021-09-02 (TEL) [facility] [id number] Co mmon 00:00:00 00:00:00 [facility] 2021-08-10 2021-08-10 OFFICE [facility] [id number] Co mmon 00:00:00 00:00:00 VISIT [facility] PT LEVEL 3 - CHI [facility] Results Test Description Test Time Test Comments Results Result Comments Source Novel Coronavirus 2019 Inhouse 2022-03-06 22:21:00 Test Item Value Reference Range Interpretation Comme nts Novel Coronavirus 2018 Negative Negative Posit marco antonio results are indicative of the Inhouse (test code = presenc e doZTEU-MyV-0 RNA, clinical COVNONPUI) correlation wit h patient historyand other diagnosti c information is necessary to de terminepatient infection status. Positiv e results do not rule outbacterial in fection or co-infection with other viru ses. Negative results do not preclude SA RS-CoV-2 infection andshould not b e used as the sole basis for patient man agementdecisions. Negative result s must be combined with otherclinical o bservations, patient history, and ep idemiologicalinformation. Detection of SA RS-CoV-2 RNA may be affected bysamp le collection methods, storage conditi ons, and/or stageof infection. Valentine l RNA mutations, vaccinations, a ntiviraltherapeutics, antibiotics, ch emotherapeutic orimmunosuppres roosevelt drugs have not been evaluated for e ffectson detection. Results are for the identification of SARS-CoV-2 RNA usingreal-time (RT) polymerase pau n reaction (PCR) technologyfor t he qualitative detection of nucleic acid s from [id number]-4 virus and diagn osis of SARS-CoV-2 virusinfection. It is an Emergency Use Authorization ( EUA) testauthorized by the U.S. FDA. BASIC METABOLIC [id number] 08:52:00 Test Item Value Reference Range Interpretation Comments SODIUM (test code = NA) 136 mEq/L 134-147 N POTASSIUM (test code = 5.1 mEq/L 3.4-5.0 H K) CHLORIDE (test code = 107 mEq/L 100-108 N CL) CARBON DIOXIDE (test 27 mEq/l 21-33 N code = CO2) ANION GAP (test code = 7 0-20 N GAP) GLUCOSE (test code = 109 mg/dL 70-110 N GLU) BLOOD UREA NITROGEN 26 mg/dL 7-18 H (test code = BUN) GLOMERULAR FILTRATION 42.5 70-80 L Units of measure = RATE (test code = GFR) ml/mi n/1.73 m2 CREATININE (test code = 1.6 mg/dL 0.6-1.3 H CREAT) CALCIUM (test code = 9.5 mg/dL 8.0-10.5 N CA) PROTHROMBIN [id number] 08:44:00 Test Item Value Reference Range Interpretation Comments PROTHROMBIN TIME 13.4 SECONDS 9.3-12.9 H PATIENT (test code = PTP) INTERNATIONAL NORMAL 1.2 0.8-1.2 N TARGET INR BY RATIO (test code = INDICATIO N Indication INR) INR1. Prophylax is of venous thrombos is 2.0 - 3.0 (orthoped ic surgery), Proph ylaxis of venous throm bosis (other than hig h-risk surgery), Treat ment of Deep Vein Thrombosis/Pulm onary Embolism, Preve ntion of systemic emb olism - Tissue heart va lves, Acute Myocardia l Infarction (to prevent systemic emboli sm), Valvular heart disease, Atrial Fibrillation, Bileaflet mecha nical valve in aortic position.2. Mec hanical prosthetic valv es (high risk), 2. 5 - 3.5 Presence of Lup us Anticoagulant o r Antiphospholipi d Antibodies, Pre vention of systemic emb olism - Acute Myocardia l Infarction (to prevent recurrent infar ct). CBC W/AUTO [id number] 08:41:00 Test Item Value Reference Range Interpretation Comments WHITE BLOOD CELL (test code = 8.1 x10 3/uL 4.5-11.0 N WBC) RED BLOOD CELL (test code = 4.27 x10 6/uL 4.00-5.60 N RBC) HEMOGLOBIN (test code = HGB) 13.4 g/dL 12.5-16.9 N HEMATOCRIT (test code = HCT) 40.0 % 37.5-50.7 N MEAN CELL VOLUME (test code = 93.7 fL 81.0-99.0 N MCV) MEAN CELL HGB (test code = MCH) 31.4 pg 27.0-33.0 N MEAN CELL HGB CONCETRATION 33.5 g/dL 33.0-37.0 N (test code = MCHC) RED CELL DISTRIBUTION WIDTH CV 13.5 % 11.5-14.5 N (test code = RDW) PLATELET COUNT (test code = 229 x10 3/uL 150-400 N PLT) NEUTROPHIL % (test code = NT%) 52.4 % 56.0-77.0 L LYMPHOCYTE % (test code = LY%) 29.6 % 14.0-32.0 N NEUTROPHIL # (test code = NT#) 4.22 x10 3/uL 2.0-7.6 N LYMPHOCYTE # (test code = LY#) 2.38 x10 3/uL 1.0-3.8 N MANUAL DIFF REQUIRED (test code NO = MDIFF) RED CELL DISTRIBUTION WIDTH SD 46.4 fL 37.0-54.0 N (test code = RDW-SD) MEAN PLATELET VOLUME (test code 9.0 fL 7.0-9.0 N = MPV) IMMATURE GRANULOCYTE % (test 0.4 % 0.0-2.0 N code = IG%) MONOCYTE % (test code = MO%) 12.0 % 4.8-9.0 H EOSINOPHIL % (test code = EO%) 4.7 % 0.3-3.7 H BASOPHIL % (test code = BA%) 0.9 % 0.0-2.0 N NUCLEATED RBC % (test code = 0.0 % 0-0 N NRBC%) IMMATURE GRANULOCYTE # (test 0.03 x10 3/uL 0.00-0.03 N code = IG#) MONOCYTE # (test code = MO#) 0.97 x10 3/uL 0.1-0.8 H EOSINOPHIL # (test code = EO#) 0.38 x10 3/uL 0.0-0.2 H BASOPHIL # (test code = BA#) 0.07 x10 3/uL 0.0-0.2 N NUCLEATED RBC # (test code = 0.00 x10 3/uL 0.0-0.1 N NRBC#) [id number] 08:21:00 Test Item Value Reference Range Interpretation Comments ACT-ISTAT (test code 291 SEC 74-137 H Perform ed by 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 = 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 [facility] - XR CHEST 1 [id number] 00:00:00 [facility] 1945 Sex: M FAX: Faraz Nielsen MD [phone] [place]: St: [facility] FAX: Nathaniel Kirkland MD [phone] FAX: Mike Blackmon [phone] Name: KALE [facility] : 1945 Age/S: 76/M [address] [place], [place] [address]vd Unit #: [id number] Loc: [place] [address] Phys: Mike Blackmon Acct: [id number] Dis Date: Status:ADM IN PHONE #: [phone] Exam Date: 02/01/2022 09 FAX #: [phone] Reason: WATCHMAN EXAMS:CPT CODE: [id number] XR CHEST 1 V [id number] PROCEDURE INFORMATION: Exam: XR Chest Exam date and time: 02/01/2022 9:15 AM Age: 76 years old Clinical indication: Screening exam; Other screening; Additional info: Watchman TECHNIQUE: Imaging protocol: XR of the chest. Views: 1 view. COMPARISON: DX XR CHEST 2 01/30/2022 11:28 AM FINDINGS: Lungs: See "Pleural spaces" finding. Pleural spaces: No gross active pleural, parenchymal, or mediastinal abnormalities noted. Heart/Mediastinum: See "Pleural spaces" finding. Bones/joints: The visualized bones of the thorax are grossly unremarkable. IMPRESSION: No acute abnormality in the chest. at 0946 Reported and signed by: Jelly Costa M.D. CC: Faraz Nielsen MD; Nathaniel Isaacs MD; Mike Blackmon Technologist: Jolie Rosa, RT(R); Ashly PedroRT(R) Trnscrd Date/Time/By: 02/01/2022 (46) : By: [email or web address] Orig Print D/T: S: 02/01/2022 (5883) PAGE 1 Signed ReportNovel Coronavirus 2019 [id number] 02:24:00 Test Item Value Reference Range Interpretation Comments Novel Coronavirus Negative Negative Positive r esults are 2019 Inhouse (test indicativ e of the presence code = COVNONPUI) ofSARS-CoV -2 RNA, clinical correlation wit h patient historyand othe r diagnostic info rmation is necessary to determinepatien t infection status. Positiv e results do not rule out bacterial infection or co -infection with other viru ses. Negative result s do not preclude SARS-C oV-2 infection andsh ould not be used as the maximo e basis for patient managementdecis ions. Negative result s must be combined with otherclinical observations, p atient history, and epidemiological information . Detection of SARS-CoV-2 RNA may be affe cted bysample collec tion methods, storag e conditions, and /or stageof infection. Valentine l RNA mutations, vacc inations, antiviraltherap eutics, antibiotics, chemotherapeuti c orimmunosuppres roosevelt drugs have not been e valuated for effectson d etection. Results are for the identification of SARS-CoV-2 RNA usingreal-time (RT) polymerase pau n reaction (PCR) technolog yfor the qualitative det ection of nucleic acids f rom [id number] v irus and diagnosis of SA RS-CoV-2 virusinfection. It is an Emergency Use Authorization ( EUA) testauthorized by the U.S. FDA. BASIC METABOLIC [id number] 13:04:00 Test Item Value Reference Range Interpretation Comments SODIUM (test code = NA) 141 mEq/L 134-147 N POTASSIUM (test code = 4.4 mEq/L 3.4-5.0 N K) CHLORIDE (test code = 107 mEq/L 100-108 N CL) CARBON DIOXIDE (test 25 mEq/l 21-33 N code = CO2) ANION GAP (test code = 14 0-20 N GAP) GLUCOSE (test code = 94 mg/dL 70-110 N GLU) BLOOD UREA NITROGEN 19 mg/dL 7-18 H (test code = BUN) GLOMERULAR FILTRATION 54.0 70-80 L Units of measure = RATE (test code = GFR) ml/mi n/1.73 m2 CREATININE (test code = 1.3 mg/dL 0.6-1.3 N CREAT) CALCIUM (test code = 9.3 mg/dL 8.0-10.5 N CA) [id number] 13:04:00 Test Item Value Reference Range Interpretation Comments PREALBUMIN (test code = PREALB) 23.4 mg/dL 16.0-40.0 N PROTHROMBIN [id number] 12:59:00 Test Item Value Reference Range Interpretation Comments PROTHROMBIN TIME 13.2 SECONDS 9.3-12.9 H PATIENT (test code = PTP) INTERNATIONAL NORMAL 1.2 0.8-1.2 N TARGET INR BY RATIO (test code = INDICATIO N Indication INR) INR1. Prophylax is of venous thrombos is 2.0 - 3.0 (orthoped ic surgery), Proph ylaxis of venous throm bosis (other than hig h-risk surgery), Treat ment of Deep Vein Thrombosis/Pulm onary Embolism, Preve ntion of systemic emb olism - Tissue heart va lves, Acute Myocardia l Infarction (to prevent systemic emboli sm), Valvular heart disease, Atrial Fibrillation, Bileaflet mecha nical valve in aortic position.2. Mec hanical prosthetic valv es (high risk), 2. 5 - 3.5 Presence of Lup us Anticoagulant o r Antiphospholipi d Antibodies, Pre vention of systemic emb olism - Acute Myocardia l Infarction (to prevent recurrent infar ct). CBC W/AUTO [id number] 12:46:00 Test Item Value Reference Range Interpretation Comments WHITE BLOOD CELL (test code = 7.0 x10 3/uL 4.5-11.0 N WBC) RED BLOOD CELL (test code = 4.56 x10 6/uL 4.00-5.60 N RBC) HEMOGLOBIN (test code = HGB) 13.7 g/dL 12.5-16.9 N HEMATOCRIT (test code = HCT) 42.0 % 37.5-50.7 N MEAN CELL VOLUME (test code = 92.1 fL 81.0-99.0 N MCV) MEAN CELL HGB (test code = MCH) 30.0 pg 27.0-33.0 N MEAN CELL HGB CONCETRATION 32.6 g/dL 33.0-37.0 L (test code = MCHC) RED CELL DISTRIBUTION WIDTH CV 13.5 % 11.5-14.5 N (test code = RDW) PLATELET COUNT (test code = 227 x10 3/uL 150-400 N PLT) NEUTROPHIL % (test code = NT%) 50.2 % 56.0-77.0 L LYMPHOCYTE % (test code = LY%) 34.2 % 14.0-32.0 H NEUTROPHIL # (test code = NT#) 3.53 x10 3/uL 2.0-7.6 N LYMPHOCYTE # (test code = LY#) 2.41 x10 3/uL 1.0-3.8 N MANUAL DIFF REQUIRED (test code NO = MDIFF) RED CELL DISTRIBUTION WIDTH SD 45.7 fL 37.0-54.0 N (test code = RDW-SD) MEAN PLATELET VOLUME (test code 9.1 fL 7.0-9.0 H = MPV) IMMATURE GRANULOCYTE % (test 0.3 % 0.0-2.0 N code = IG%) MONOCYTE % (test code = MO%) 10.5 % 4.8-9.0 H EOSINOPHIL % (test code = EO%) 3.8 % 0.3-3.7 H BASOPHIL % (test code = BA%) 1.0 % 0.0-2.0 N NUCLEATED RBC % (test code = 0.0 % 0-0 N NRBC%) IMMATURE GRANULOCYTE # (test 0.02 x10 3/uL 0.00-0.03 N code = IG#) MONOCYTE # (test code = MO#) 0.74 x10 3/uL 0.1-0.8 N EOSINOPHIL # (test code = EO#) 0.27 x10 3/uL 0.0-0.2 H BASOPHIL # (test code = BA#) 0.07 x10 3/uL 0.0-0.2 N NUCLEATED RBC # (test code = 0.00 x10 3/uL 0.0-0.1 N NRBC#) - XR CHEST 2 [id number] 00:00:00 [facility] : 1945 Sex: M FAX: Faraz Nielsen MD [phone] [place]: St: PRE FAX: Nathaniel Kirkland MD [phone] Name: [facility] [place] : 1945 Age/S: 76/M [address] [place] [address] Blvd Unit #: [id number] Loc: [place] [address] Phys: Nathaniel Isaacs MD Acct: [id number] Dis Date: Status: PRE IN PHONE #: [phone] Exam Date: 0 01/30/2022 1148 FAX #: [phone] Reason: PREOP EXAMS: CPT CODE: [id number] XR CHEST 2 V 03152 PROCEDURE INFORMATION: Exam: XR Chest Exam date and time: 01/30/2022 11:28 AM Age: 76 years old Clinical indication: Screening exam; Pre- operative exam; Cardiovascular screening; Additional info: Preop TECHNIQUE: Imaging protocol: XR of the chest. Views: 2 views. PA and Lateral COMPARISON: DX XR CHEST 2 V 11/11/2021 10:35 AM FINDINGS: Lungs: No focal infiltrate identified within the lungs and no edema. Pleural spaces: Unremarkable. No pleural effusion. No pneumothorax. Heart/Mediastinum: Cardiac and mediastinal structures are stable. Bones/joints: Degenerative changes are seen about the thoracic spine. IMPRESSION: No acute cardiopulmonary disease. Electronically Signed by Dave Henao on 01/30/2022 at 1442 Reported and signed by: Jonas Henao M.D. 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 [facility] [id number] 12:54:00 Test Item Value Reference Range Interpretation Comments ACT-ISTAT (test code 303 SEC 74-137 H Perform ed by certified = 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 [facility] [id number] 12:54:00 Test Item Value Reference Range Interpretation Comments ACT-ISTAT (test code 511 SEC 74-137 H Perform ed 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 Positiv e results do not rule out bacterial infection or co -infection with other viru ses. Negative result s do not preclude SARS-C oV-2 infection andsh ould not be used as the maximo e basis for patient managementdecis ions. Negative result s must be combined with otherclinical observations, p atient history, and epidemiological information . Detection of SARS-CoV-2 RNA may be affe cted bysample collec tion methods, storag e conditions, and /or stageof infection. Valentine l RNA mutations, vacc inations, antiviraltherap eutics, antibiotics, chemotherapeuti c orimmunosuppres roosevelt drugs have not been e valuated for effectson d etection. Results are for the identification of SARS-CoV-2 RNA usingreal-time (RT) polymerase pau n reaction (PCR) technolog yfor the qualitative det ection of nucleic acids f rom [id number] v irus and diagnosis of SA RS-CoV-2 virusinfection. It is an Emergency Use Authorization ( EUA) testauthorized by the U.S. FDA. BASIC METABOLIC [id number] 10:36:00 Test Item Value Reference Range Interpretation Comments SODIUM (test code = NA) 142 mEq/L 134-147 N POTASSIUM (test code = 4.2 mEq/L 3.4-5.0 N K) CHLORIDE (test code = 108 mEq/L 100-108 N CL) CARBON DIOXIDE (test 22 mEq/l 21-33 N code = CO2) ANION GAP (test code = 16 0-20 N GAP) GLUCOSE (test code = 103 mg/dL 70-110 N GLU) BLOOD UREA NITROGEN 18 mg/dL 7-18 N (test code = BUN) GLOMERULAR FILTRATION 59.3 70-80 L Units of measure = RATE (test code = GFR) ml/mi n/1.73 m2 CREATININE (test code = 1.2 mg/dL 0.6-1.3 N CREAT) CALCIUM (test code = 9.1 mg/dL 8.0-10.5 N CA) PROTHROMBIN [id number] 10:28:00 Test Item Value Reference Range Interpretation Comments PROTHROMBIN TIME 14.9 SECONDS 9.3-12.9 H PATIENT (test code = PTP) INTERNATIONAL NORMAL 1.3 0.8-1.2 H TARGET INR BY RATIO (test code = INDICATIO N Indication INR) INR1. Prophylax is of venous thrombos is 2.0 - 3.0 (orthoped ic surgery), Proph ylaxis of venous throm bosis (other than hig h-risk surgery), Treat ment of Deep Vein Thrombosis/Pulm onary Embolism, Preve ntion of systemic emb olism - Tissue heart va lves, Acute Myocardia l Infarction (to prevent systemic emboli sm), Valvular heart disease, Atrial Fibrillation, Bileaflet mecha nical valve in aortic position.2. Mec hanical prosthetic valv es (high risk), 2. 5 - 3.5 Presence of Lup us Anticoagulant o r Antiphospholipi d Antibodies, Pre vention of systemic emb olism - Acute Myocardia l Infarction (to prevent recurrent infar ct). CBC W/AUTO [id number] 10:25:00 Test Item Value Reference Range Interpretation Comments WHITE BLOOD CELL (test code = 8.6 x10 3/uL 4.5-11.0 N WBC) RED BLOOD CELL (test code = 4.70 x10 6/uL 4.00-5.60 N RBC) HEMOGLOBIN (test code = HGB) 14.1 g/dL 12.5-16.9 N HEMATOCRIT (test code = HCT) 43.5 % 37.5-50.7 N MEAN CELL VOLUME (test code = 92.6 fL 81.0-99.0 N MCV) MEAN CELL HGB (test code = MCH) 30.0 pg 27.0-33.0 N MEAN CELL HGB CONCETRATION 32.4 g/dL 33.0-37.0 L (test code = MCHC) RED CELL DISTRIBUTION WIDTH CV 13.9 % 11.5-14.5 N (test code = RDW) PLATELET COUNT (test code = 226 x10 3/uL 150-400 N PLT) NEUTROPHIL % (test code = NT%) 57.5 % 56.0-77.0 N LYMPHOCYTE % (test code = LY%) 28.1 % 14.0-32.0 N NEUTROPHIL # (test code = NT#) 4.95 x10 3/uL 2.0-7.6 N LYMPHOCYTE # (test code = LY#) 2.42 x10 3/uL 1.0-3.8 N MANUAL DIFF REQUIRED (test code NO = MDIFF) RED CELL DISTRIBUTION WIDTH SD 47.2 fL 37.0-54.0 N (test code = RDW-SD) MEAN PLATELET VOLUME (test code 9.1 fL 7.0-9.0 H = MPV) IMMATURE GRANULOCYTE % (test 0.3 % 0.0-2.0 N code = IG%) MONOCYTE % (test code = MO%) 9.9 % 4.8-9.0 H EOSINOPHIL % (test code = EO%) 3.3 % 0.3-3.7 N BASOPHIL % (test code = BA%) 0.9 % 0.0-2.0 N NUCLEATED RBC % (test code = 0.0 % 0-0 N NRBC%) IMMATURE GRANULOCYTE # (test 0.03 x10 3/uL 0.00-0.03 N code = IG#) MONOCYTE # (test code = MO#) 0.85 x10 3/uL 0.1-0.8 H EOSINOPHIL # (test code = EO#) 0.28 x10 3/uL 0.0-0.2 H BASOPHIL # (test code = BA#) 0.08 x10 3/uL 0.0-0.2 N NUCLEATED RBC # (test code = 0.00 x10 3/uL 0.0-0.1 N NRBC#) - XR CHEST 2 [id number] 00:00:00 [facility] MAGNO NGUYENName: KALE ARCHULETA : 1945 Sex: M FAX: Ja Perez [phone] [place]: St: PRE Name: KALE ARCHULETA [facility] [place] : 1945 Age/S: 75/M [address] [place] [address] Unit #: [id number] Loc: [place] [address] Phys: Ja Odonnell MD Acct: [id number] Dis Date: Status: PRE [facility] PHONE #: [phone] Exam Date: 11/11/2021 1051 FAX #: Reason: PREOP EXAMS: CPT CODE: [id number] XR CHEST 2 V 22758 PROCEDURE INFORMATION: Exam: XR Chest Exam date and time: 11/11/2021 10:35 AM Age: 75 years old Clinical indication: Screening exam;Pre-operative exam; Other: Preop TECHNIQUE: Imaging protocol: XR of the chest. Views: 2 views. PA and Lateral COMPARISON: No relevant prior studies available. FINDINGS: Lungs: No focal infiltrate identified within the lungs and no edema. Pleural spaces: Unremarkable. No pleural effusion. No pneumothorax. Heart/Mediastinum: Cardiac and mediastinal structures are normal. Bones/joints: Degenerative changes are seen about the thoracic spine. Patient is status post prior cervical spine surgery. IMPRESSION: No acute cardiopulmonary disease. at 1334 Reported and signed by: Jonas Henao M.D. CC: Ja Bernard MD Technologist: RT Moo(R) Trnscrd Date/Time/By: 11/11/2021 (5728) : By: [email or web address] Orig Print D/T: S: 11/11/2021 (2034) PAGE 1 Signed Report Notes Date/Time Note Provider Source 2022-02-01 14:36:00-00:00 [id number] [place] [address] PATIENT NAME: KALE ARCHULETA ADMIT DATE: 02/01/22 ACCOUNT NO: [id number] ROOM NO: [facility] AGE: 76 REPORT TYPE: eECHOCARDIOGRAM REPORT SEX: M ADMITTING PHYSICIAN:Nathaniel Isaacs MD ATTENDING PHYSICIAN:Nathaniel Isaacs MD *[place] [address] Limited Transthoracic Echocardiogram Patient: Kale Archuleta Study Date: 02/01/2022 BP: 108 / 63 Location: [facility] URN: [id number] : 1945 Age: 76 Height: 73 in / 185.4 cm Gender: M Weight: 232 .5 lb / 105.7 kg BMI/BSA: 30.7 kg/m 2 / 2.3 m 2 *Ordering Physician: * Mike Blackmon *Interpreting Physician: * Carol Nieves MD *Pediatric Audiologist: * Catalino, Bikwabena Indications: POST WATCHMAN. Study data: Transthoracic echocardiogram, limite d study. Procedure: Transthoracic echocardiography was performed. Im age quality was adequate. Limited 2D and limited spectral Dopple r. Location: Bedside. Patient status: Inpatient. Patient room number: CVPACU. Study status: Routine. Findings Left ventricle: The cavity size is normal. Wall thickness is normal. Systolic function is normal. The estimated eject ion fraction is 50-54%. Wall motion is normal; there are no regional wal l motion abnormalities. Right ventricle: The cavity size is normal. Syst olic function is normal. Left atrium: The atrium is normal in size. PATIENT NAME: KALE ARCHULETA 4 Pericardium: There is no pericardial effusion. Measurements Left ventricle Value Ref JANIYA, LAX 4.9 cm 4.2 - 5.8 ESD, LAX 3.6 cm 2.5 - 4.0 ESD/bsa, LAX 1.5 cm/m 2 1.3 - 2.1 FS, LAX 28 % 25 - 43 ESD/bsa major ax, A4C 2.8 cm/m 2 --------- JANIYA/bsa minor ax, A4C 2.8 cm/m 2 --------- JANIYA major ax, A2C 7.2 cm --------- JANIYA/bsa major ax, A2C 3.1 cm/m 2 --------- PW, ED 1.0 cm 0.6 - 1.0 IVS/PW, ED 0.97 --------- EF 54 % 52 - 72 LVOT Value Ref Diam, S 1.97 cm --------- Area 3.1 cm 2 --------- Ventricular septum Value Ref IVS, ED 1.0 cm 0.6 - 1.0 Right ventricle Value Ref JANIYA, LAX 3.0 cm --------- Left atrium Value Ref Vol/bsa, ES, 1-p A4C 30 ml/m 2 12 - 37 Vol/bsa, ES, A/L 31 ml/m 2 16 - 34 AP dim, ES MM 3.9 cm 3.0 - 4.0 LA/Ao root ratio, MM 1.19 --------- Aortic valve Value Ref Leaflet sep, MM 2.14 cm --------- Mitral valve Value Ref E-septal separation 0.5 cm --------- E-F slope 0.14 m/sec --------- Aortic root Value Ref Root diam, ED MM 3.27 cm --------- Conclusions Summary: 1. Left ventricle: The cavity size is normal. Wa ll thickness is normal. Systolic function is normal. The estimated ejec tion fraction is 50-54%. Wall motion is normal; there are no reg ional wall motion abnormalities. 2. Pericardium, extracardiac: There is no perica rdial effusion. PATIENT NAME: KALE ARCHULETA 4 Prepared and electronically signed by Carol Nieves MD 02/01/2022 14:36 Electronically Signed by Carol Nieves MD on 0 02/01/22 at 1436 PATIENT NAME: KALE ARCHULETA 4 2022-02-01 11:50:00-00:00 [facility] ([facility]) Discharge Summary REPORT#:[id number] REPORT STATUS: Signed DATE:02/01/22 TIME: 1150 PATIENT: KALE ARCHULETA UNIT #: [id number] ROOM/BED: [place] [address] : [birth year] AGE: 76 SEX: M ATTEND: Doug Isaacs MD ADM AUTHOR: Mike Blackmon * ALL edits or amendments must be made on the [employer]/computer document * PCP PCP Discharge to: home General Information Discharge date: 02/01/22 Hospital course: Patient with long-standing p ersistent atrial fibrillation, CHADSVASC score of 3, and intolerance to long-term anticoagulation due to multiple falls and poor compliance with anticoagulant. Patient is s/p successful implantation of a 24mm Watchman device in the left atrial appendage. Patient tolerated the procedure without post-op complications. No thrombus was identified in the pre-/intra-op ONEAL. Postoperatively, chest x-ray is negative for any acute process. Post-op echo did not show a pericardial effusion. Patient ambulated without an y difficulty, and heart rate and blood pressure are stable. Right groin suture removed by this LUMBER CARRIER. No infect ion, bleeding, or hematoma. Dermabond applied and intact. Patient was provided with post-Watchman discharg e instructions. Patient is to follow up with PCP and mechanical planner in 1 to 2 we eks post discharge. Patient is to follow up with mechanical planner for th e 45-day ONEAL, and for anticoagulation recommendation. Patient is to continue Eliquis until the 45-day ONEAL. If the 45-day ONEAL shows a we ll-seated watchman device with no leaks or thrombus, then Eliquis will be discontinued and th e patient will be initiated on aspirin and Plavix. Duration of aspirin is lifelong. Duration of Plavix is 6 months post 45-day ONEAL. Post-Watchman discharge instructions given to th e patient who verbalized understanding, and patient w as instructed to report any complaints of chest pain , shortness of breath, lightheadedness, or dizzi ness to the mechanical planner. Dispo: It is medically necessary that patients u ndergoing percutaneous left atrial appendage occlusion are admitted as an in patient. This patient had a recovery that was earlier than expected and can be discharged today. Med Rec PCP PCP: PCP: Undefined Provider Med Rec Discharge meds: Continue taking these medications: ALLOPURINOL (ZYLOPRIM) 100 MG TAB 100 MILLIGRAM ORAL DAILY-PM TAMSULOSIN ER (FLOMAX) 0.4 MG CAP.SR.24H 0.4 MILLIGRAM ORAL DAILY-PM PANTOPRAZOLE DR (PROTONIX) 40 MG TAB.DR 40 MILLIGRAM ORAL DAILY-PM METOPROLOL TARTRATE (LOPRESSOR) 25 MG TAB 12.5 MILLIGRAM ORAL TWICE DAILY. LISINOPRIL (ZESTRIL) 10 MG TAB 10 MILLIGRAM ORAL DAILY-PM APIXABAN (ELIQUIS) 5 MG TAB 5 MILLIGRAM ORAL TWICE DAILY. Objective VS/I O Last Documented: Result Date Time O2 Delivery Nasal cannula 02/01 1014 O2 Flow Rate 2 02/01 1014 Pulse Ox 98 02/01 0716 B/P 171/86 02/01 0716 Pulse 57 02/01 0716 Resp 18 02/01 0716 PATIENT WEIGHT: Weight (lb): 233 Weight (oz): 11.04 Weight (kg): 106.000 General appearance: alert, awake, oriented Respiratory: clear to auscultation, no distress GI: soft, non-tender Extremities: moves all Neuro/THROUGH FREIGHT ENGINEER: alert, oriented X 3 Skin: dry Results Findings/Data: Laboratory Tests: 02/01 0816 Coagulation Activated Coag Time (74 - 137 SEC) 291 H Radiology data: Recent Impressions: RADIOLOGY - XR CHEST 1 V 02/01 0932 Report Impression - Status: SIGNED Entered: 02/01/2022 0975 IMPRESSION: No acute abnormality in the chest. Impression By: Davis Dahl Treatments Procedures Treatments Procedures: implantation of a 24mm Watchman device in the le ft atrial appendage Imaging: Recent Impressions: RADIOLOGY - XR CHEST 1 V 02/01 0932 Report Impression - Status: SIGNED Entered: 02/01/2022 0947 IMPRESSION: No acute abnormality in the chest. Impression By: Davis aDhl Discharge Instructions PCP PCP: PCP: Undefined Provider )( Discharge to: Home/Self Care Discharge Instructions Additional Discharge Routines: Attending Follow- Up )( Diet: Cardiac )( Activity: As Tolerated Follow-up Appointments PCP follow up: Special instructions: SEE ATTACHED. Attending Physician: Attending Physician: Nathaniel Isaacs MD Attending physician follow up timeframe: In 1-2 weeks Special instructions: SEE ATTACHED. Electronically Signed by Mike Blackmon o n 02/02/22 at 1154 Electronically Signed by Nathaniel Isaacs MD on 11/15 at 0946 RPT #:[id number] END OF REPORT 2022-02-01 09:03:00-00:00 [id number] [place] [address] PATIENT NAME: KALE ARCHULETA ADMIT DATE: 02/01/22 ACCOUNT NO: [id number] ROOM NO: [facility] AGE: 76 REPORT TYPE: eELECTROCARDIOGRAM REPORT SEX: M ADMITTING PHYSICIAN:Nathaniel Isaacs MD ATTENDING PHYSICIAN:Nathaniel Isaacs MD Order: [id number] Test Reason : WATCHMAN Test Date/Time Stamp: SunFeb 01 2022 09:03:38 Blood Pressure : / mmHG Vent. Rate : 056 BPM Atrial Rate : 056 BPM P-R Int : 170 ms QRS Dur : 088 ms QT Int : 454 ms P-R-T Axes : 062 043 015 degree s QTc Int : 438 ms Sinus bradycardia Abnormal ECG PRE_OP Confirmed by DL BLOOD MD ([id number]) on 02/03/20 9:37:49 AM Referred By: Nathaniel Isaacs Confirmed by:DL MONTERROSO MD at 0937 PATIENT NAME: KALE ARCHULETA 4 2022-02-01 08:34:00-00:00 [id number] [place] [address] PATIENT NAME: KALE ARCHULETA ADMIT DATE: 02/01/22 ACCOUNT NO: [id number] ROOM NO: [facility] AGE: 76 REPORT TYPE: CARDIAC CATHETERIZATION REPORT SEX: M ADMITTING PHYSICIAN:Nathaniel Isaacs MD ATTENDING PHYSICIAN:Nathaniel Isaacs MD PROCEDURE DATE: 02/01/2022 PROCEDURE PERFORMED: Left atrial appendage closu re using 24 mm Watchman FLX closure device. INDICATION: History of chronic AFib with high CHADS-VASc score, risk of stroke and multiple falls and poor compliance with anti coagulant. ACCESS: Right femoral vein, 16-Palauan closed wit h xcodom-or-osyej suture. COMPLICATIONS: None. BLEEDING: Less than 20 mL. OPERATORS: Nathaniel Isaacs MD. and Carol Nieves MD. DESCRIPTION OF PROCEDURE: After risks, benefits, and alternatives were explained, the patient agreed to proceed and sig bárbara informed consent. The patient was brought into [facility] catheterization laboratory, prepped and draped in usual sterile fashion. I accessed right femoral vein using micropuncture kit and ultrasound guidance, placed 8-Palauan [place] sheath. This was upgraded to shortly to 16-Palauan Cook sheath. Partial dose o f heparin was given. I then took SL1 sheath over the wire into the SVC with the Altmar needle inside, descended into the interatri al septum under ONEAL and fluoroscopy guidance in the low mid position. Transseptal puncture was perfo rmed and LA pressure was measured at 16 mmHg. Full do se heparin was given to assure ACT level above 250. ProTrack wire was advanced into the lef t atrium, exchanged the SL1 sheath for the Watchman double curve sheath. Subseq uently, I took a pigtail into the left atrium, navigated that into the appendage and telescoped the sheath over it into the appendage and appendage angiogram was done and decided for 24 mm device will be suitable for closure. The device was prepped and de-aired in the usual sterile fashion and then removed the pig tail after good bleed back. The device delivery system was introduced under positive fl ush and then deployed in the appendage under fluoroscopy and ONEAL guid ance. PASS criteria were evaluated and all met. The device was released. I removed the Watchman sheath and delivery system and then removed Cook sheath and placed qyrfwb-pa-cbbrb suture with good hemostasis. CONCLUSION: Successful left atrial appendage cricket sure using 24 mm Watchman FLX closure device. Dictated By: Nathaniel Isaacs MD PATIENT NAME: KALE ARCHULETA 4 WT: CATH:EVERARDO/MACK/ANNETTE Conf#: [id number]#: [id number] Authenticated by Nathaniel Isaacs MD On 02/13/2022 11:35:21 AM Electronically Signed by Nathaniel Isaacs MD on at 1135 PATIENT NAME: KALE ARCHULETA 4 2022-01-30 11:33:00-00:00 [id number] [place] [address] PATIENT NAME: KALE ARCHULETA ADMIT DATE: ACCOUNT NO: [id number] ROOM NO: AGE: 76 REPORT TYPE: eELECTROCARDIOGRAM REPORT SEX: M ADMITTING PHYSICIAN:Nathaniel Isaacs MD ATTENDING PHYSICIAN:Nathaniel Isaacs MD Order: [id number] Test Reason : PREOP Test Date/Time Stamp: SunJan 30 2022 11:33:11 Blood Pressure : / mmHG Vent. Rate : 068 BPM Atrial Rate : 068 BPM P-R Int : 184 ms QRS Dur : 086 ms QT Int : 398 ms P-R-T Axes : 016 007 -08 degree s QTc Int : 423 ms Normal sinus rhythm Voltage criteria for left ventricular hypertroph y Abnormal ECG PRE_OP Confirmed by DL BLOOD MD ([id number]) on 2 12:25:43 PM Referred By: Nathaniel Isaacs Confirmed by:DL MONTERROSO MD at 1225 PATIENT NAME: KALE ARCHULETA 4 2021-11-14 20:12:00-00:00 [id number] [place] [address] PATIENT NAME: KALE ARCHULETA ADMIT DATE: 11/14/21 ACCOUNT NO: [id number] ROOM NO: AGE: 75 REPORT TYPE: OPERATIVE REPORT SEX: M ADMITTING PHYSICIAN: ATTENDING PHYSICIAN:Ja Odonnell MD OPERATION DATE: 11/14/2021 PREPROCEDURE DIAGNOSES: 1. Atypical atrial flutter. 2. Paroxysmal atrial fibrillation. 3. Dizziness. 4. Palpitations. POSTPROCEDURE DIAGNOSES: 1. Atypical atrial flutter. 2. Paroxysmal atrial fibrillation. 3. Dizziness. 4. Palpitations. ATTENDING PHYSICIAN: Ja Bernard MD ESTIMATED BLOOD LOSS: 10 mL. PROCEDURES PERFORMED: 1. Comprehensive electrophysiology study with in duction. 2. Coronary sinus pacing and recording of the le ft atrium. 3. A 3D mapping SVT. 4. Ablation of atrial fibrillation. 5. Additional linear ablation in the left atrium for atrial fibrillation. 6. Ablation of separate distinct arrhythmia, rig ht-sided atrial flutter. 7. Intracardiac echocardiogram. DESCRIPTION OF PROCEDURE: After informed consent was obtained, the patient was brought to the electrophysio logy laboratory in a fasting nonsedated state. Area over his groin was prepped and draped in the usu al sterile fashion. General anesthesia was started. Vascular access was obta ined x3 in the right common femoral vein using the modif ied Seldinger technique under ultrasound guidance, 3 sheaths were placed. Decapolar catheter to the c oronary sinus for pacing and recording. Heparin was given to maintain ACT gre ater than 350. Then, transseptal access was performed x1 under intrac ardiac echo guidance. The basket catheter advanced to the left atrium and a 3D map of the left atrium was created using [employer] system. The patient was in atrial flutter. A 3D map of t he atrial flutter was consistent with right-sided atrial flutter. We t hen performed radiofrequency ablation at the CTI for this right-sided atrial flutter until successful termination of the flutter and demonstration of block. The patient spontaneously we nt into atrial fibrillation, so we went transseptal PATIENT NAME: KALE ARCHULETA 11 and performed radiofrequency ablation proximal t o the ostium of the pulmonary veins. This way, the left upper, left lower, rig ht upper and right lower pulmonary veins were isolate d in a wide area circumferential ablation technique. The patient continued to be in atrial fibrillation, so we performed additional linear ablation in the left atrium until successful isolation of the left atrial posterior wall. We then performed cardioversion to sinus rhythm. The patient remained in sinus rhythm. The patient tolerated the procedure well. Procedure was deemed complete. There was no pericardial effusion at the end of the study. The patient tolerated the procedure well. Procedure was deem ed complete. We used VASCADE to the right groin. Heparin was reversed with protamine. IMPRESSION: 1. Atrial flutter on presentation. 2. Successful ablation of this atrial flutter at the cavotricuspid isthmus. 3. Successful pulmonary vein isolation. 4. Successful isolation of the left atrial poste rior wall. 5. No complication. PLAN: Routine postop monitoring on telemetry. Co ntinue same medicines. Follow up in 1 to 2 weeks. Dictated By: Ja Bernard MD WT: OP:KAT//NTS Conf#: [id number]/DID#: [id number] Authenticated and Edited by Ja Bernard MD On 11/15/21 1:19:37 PM at 0121 PATIENT NAME: KALE ARCHULETA 9 2021-11-14 14:48:00-00:00 [id number] [place] [address] PATIENT NAME: KALE ARCHULETA ADMIT DATE: 11/14/21 ACCOUNT NO: [id number] ROOM NO: AGE: 75 REPORT TYPE: eELECTROCARDIOGRAM REPORT SEX: M ADMITTING PHYSICIAN: ATTENDING PHYSICIAN:Ja Odonnell MD Order: [id number] Test Reason : S/P ABLATION Test Date/Time Stamp: SunNov 14 2021 14:48:41 Blood Pressure : / mmHG Vent. Rate : 074 BPM Atrial Rate : 074 BPM P-R Int : 166 ms QRS Dur : 080 ms QT Int : 416 ms P-R-T Axes : 045 026 020 degree s QTc Int : 461 ms Normal sinus rhythm Normal ECG PRE_OP Confirmed by DL BLOOD MD ([id number]) on 11/14/19 4:20:11 PM Referred By: Ja Bernard Confirmed by:FUAD BLOOD MD at 1620 PATIENT NAME: KALE ARCHULETA 9 2021-11-11 10:03:00-00:00 [id number] [place] [address] PATIENT NAME: KALE ARCHULETA ADMIT DATE: ACCOUNT NO: [id number] ROOM NO: AGE: 75 REPORT TYPE: eELECTROCARDIOGRAM REPORT SEX: M ADMITTING PHYSICIAN: ATTENDING PHYSICIAN:Ja Odonnell MD Order: [id number] Test Reason : PRE OP Test Date/Time Stamp: SunNov 11 2021 10:03:21 Blood Pressure : / mmHG Vent. Rate : 073 BPM Atrial Rate : 292 BPM P-R Int : 000 ms QRS Dur : 084 ms QT Int : 400 ms P-R-T Axes : 082 042 008 degree s QTc Int : 440 ms Atrial flutter with variable AV block Nonspecific ST abnormality Abnormal ECG PRE_OP Confirmed by DL BLOOD MD ([id number]) on 11/11/19 11:43:29 AM Referred By: Ja Bernard Confirmed by:FUAD BLOOD MD at 1143 PATIENT NAME: KALE ARCHULETA 9
[2023-05-17] MEDS ORDERED: IBUPROFEN 200 MG TAB PO ONE (12:51)
--- NOTE | 2023-05-17 13:09 | RAD REPORT ---
EXAM DESCRIPTION: RAD - Lumbar Spine 3 Views - 05/17/2023 12:20 pm CLINICAL HISTORY: PAIN Radiculopathy COMPARISON: Spine Lumbar W/Wo Cont dated 02/28/2023 FINDINGS: Vertebral body heights appear maintained. No compression fracture noted. Disc thinning is present throughout the lumbar levels. 4 mm degenerative anterolisthesis at L4-5. Facet hypertrophy is present L4-5 and L5-S1. IMPRESSION: Moderate lower lumbar degenerative spondylosis is present. No acute compression fracture seen.
--- NOTE | 2023-05-17 13:09 | RAD REPORT ---
EXAM DESCRIPTION: RAD - Sacrum And Coccyx - 05/17/2023 12:20 pm CLINICAL HISTORY: PAIN COMPARISON: <Comparisons> FINDINGS: Symmetric sacroiliac joints noted. Diffuse osteopenia is seen. No acute fracture or sublux ation is suspected. If pain persists, consider follow-up MR imaging.
--- NOTE | 2023-05-17 13:17 | EDPHYS ---
Physician Documentation [facility] Name: Kale Pinzon Age: 77 yrs Sex: Male : 1945 Arrival Date: 05/17/2023 Time: 11:24 Bed 12 Private MD: ED Physician Ishan Chamorro HPI: 05/17 12:06 This 77 yrs old Male presents to ER via Ambulatory with complaints of Fall eber Injury - on 05/16. 12:06 This 77 yrs old Male presents to ER via Ambulatory with complaints of Fall eber Injury - on 05/16. 12:06 Details of fall: The patient fell from an upright position, while walking. Onset: The eber symptoms/episode began/occurred 1 day(s) ago. Associated injuries: The patient sustained coccyx and gluteal cleft, decreased range of motion, deformity, swelling. Historical: - Allergies: 11:34 No Known Allergies; bp - Home Meds: 11:34 tamsulosin 0.4 mg oral capsule every 24 hours [Active]; Lisinopril Oral [Active]; bp Allopurinol Oral [Active]; Metoprolol Tartrate Oral [Active]; pantoprazole oral [Active]; - PMHx: 11:34 Hypertensive disorder; PROSTATE; bp - Immunization history:: Adult Immunizations up to date. - Social history:: Smoking status: Patient denies any tobacco usage or history of. - Family history:: not pertinent. ROS: 12:06 Constitutional: Negative for fever, chills, and weight loss, Eyes: Negative for injury, eber pain, redness, and discharge, ENT: Negative for injury, pain, and discharge, Neck: Negative for injury, pain, and swelling, Cardiovascular: Negative for chest pain, palpitations, and edema, Respiratory: Negative for shortness of breath, cough, wheezing, and pleuritic chest pain, Abdomen/GI: Negative for abdominal pain, nausea, vomiting, diarrhea, and constipation, Back: Negative for injury and pain, : Negative for injury, bleeding, discharge, and swelling, Skin: Negative for injury, rash, and discoloration, Neuro: Negative for headache, weakness, numbness, tingling, and seizure, Psych: Negative for depression, anxiety, suicide ideation, homicidal ideation, and hallucinations, Allergy/Immunology: Negative for hives, rash, and allergies, Endocrine: Negative for neck swelling, polydipsia, polyuria, polyphagia, and marked weight changes, Hematologic/Lymphatic: Negative for swollen nodes, abnormal bleeding, and unusual bruising. 12:06 MS/extremity: Positive for injury or acute deformity, pain, of the coccyx and gluteal cleft. Exam: 12:06 Constitutional: This is a well developed, well nourished patient who is awake, alert, eber and in no acute distress. Head/Face: Normocephalic, atraumatic. Eyes: Pupils equal round and reactive to light, extra-ocular motions intact. Lids and lashes normal. Conjunctiva and sclera are non-icteric and not injected. Cornea within normal limits. Periorbital areas with no swelling, redness, or edema. ENT: Nares patent. No nasal discharge, no septal abnormalities noted. Tympanic membranes are normal and external auditory canals are clear. Oropharynx with no redness, swelling, or masses, exudates, or evidence of obstruction, uvula midline. Mucous membranes moist. Neck: Trachea midline, no thyromegaly or masses palpated, and no cervical lymphadenopathy. Supple, full range of motion without nuchal rigidity, or vertebral point tenderness. No Meningismus. Chest/axilla: Normal chest wall appearance and motion. Nontender with no deformity. No lesions are appreciated. Cardiovascular: Regular rate and rhythm with a normal S1 and S2. No gallops, murmurs, or rubs. Normal PMI, no JVD. No pulse deficits. Respiratory: Lungs have equal breath sounds bilaterally, clear to auscultation and percussion. No rales, rhonchi or wheezes noted. No increased work of breathing, no retractions or nasal flaring. Abdomen/GI: Soft, non-tender, with normal bowel sounds. No distension or tympany. No guarding or rebound. No evidence of tenderness throughout. Male : Normal genitalia with no discharge or lesions. Skin: Warm, dry with normal turgor. Normal color with no rashes, no lesions, and no evidence of cellulitis. MS/ Extremity: Pulses equal, no cyanosis. Neurovascular intact. Full, normal range of motion. Neuro: Awake and alert, GCS 15, oriented to person, place, time, and situation. Cranial nerves II-XII grossly intact. Motor strength 5/5 in all extremities. Sensory grossly intact. Cerebellar exam normal. Normal gait. Psych: Awake, alert, with orientation to person, place and time. Behavior, mood, and affect are within normal limits. 12:06 Back: pain, that is moderate, ROM is painful, normal spinal alignment noted, CVA tenderness, is absent, vertebral tenderness, is not appreciated. Vital Signs: 11:38 BP 149 / 98; Pulse 64; Resp 16; Temp 98; Pulse Ox 100% ; bp MDM: 11:34 Patient medically screened. [facility] 12:14 Differential diagnosis: contusion, fracture, sprain, strain. Data reviewed: vital eber signs, nurses notes, radiologic studies, plain films. Consideration of Admission/Observation Escalation of care including admission/observation considered. I considered the following discharge prescriptions or medication management in the emergency department Medications were administered in the Emergency Department. See MAR. Test considered but Not performed: Labs: . Historians other than the Patient: none. pt is a good historian. Care significantly affected by the following chronic conditions: Hypertension. 05/17 11:45 Order name: Lumbar Spine (3 Views) XRAY [facility] 05/17 11:45 Order name: Sacrum And Coccyx XRAY [facility] Administered Medications: 12:42 Drug: Ibuprofen PO 600 mg Route: PO; kc6 13:29 Follow up: Response: No adverse reaction; Pain is decreased kc6 Disposition Summary: 05/17/23 13:16 Discharge Ordered Location: Home eber Problem: new eber Symptoms: have improved eber Condition: Stable eber Diagnosis - Fall on same level, unspecified eber - Fracture of coccyx - Clinically eber - Spondylolysis, lumbar region eber Followup: eber - With: Private Physician - When: 2 - 3 days - Reason: Recheck today's complaints, Continuance of care, Re-evaluation by your physician Followup: eber - With: - When: 2 - 3 days - Reason: Recheck today's complaints, Re-evaluation by your physician Discharge Instructions: - Discharge Summary Sheet eber - Fall Prevention in the Home, Adult eber - Tailbone Injury eber - Tailbone Injury, [id number] Forms: - Medication Reconciliation Form eber - Thank You Letter eber - Antibiotic Education eber - Prescription Opioid Use eber - Patient Portal Instructions [facility] - Leadership Thank You Letter [facility] Prescriptions: - acetaminophen-codeine 300-30 mg Oral tablet - take 2 tablet by ORAL route every 6 hours as needed for pain; 20 tablet; eber Refills: 0, Product Selection Permitted - Ibuprofen 600 mg Oral Tablet - take 1 tablet by ORAL route every 6 hours As needed take with food; 30 tablet; eber Refills: 0, Product Selection Permitted Signatures: Dispatcher [employer] Ishan Barrientos MD MD cha Peltier, Brian, RN RN Martha Haywood RN RN kc6
--- NOTE | 2023-05-17 13:17 | ER ---
Nurse's Notes [facility] Name: Kale Pinzon Age: 77 yrs Sex: Male : 1945 Arrival Date: 05/17/2023 Time: 11:24 Bed 12 Private MD: Diagnosis: Fall on same level, unspecified;Fracture of coccyx-Clinically;Spondylolysis, lumbar region Presentation: 05/17 11:38 Chief complaint: Patient states: TAILBONE PAIN AFTER FALL Y/D. Coronavirus screen: At bp this time, the client does not indicate any symptoms associated with coronavirus-19. Ebola Screen: No symptoms or risks identified at this time. Initial Sepsis Screen: Does the patient meet any 2 criteria? No. Patient's initial sepsis screen is negative. Does the patient have a suspected source of infection? No. Patient's initial sepsis screen is negative. Risk Assessment: Do you want to hurt yourself or someone else? Patient reports no desire to harm self or others. Onset of symptoms is unknown. 11:38 Method Of Arrival: Ambulatory bp 11:38 Acuity: TAMICA 4 bp Triage Assessment: 11:38 General: Appears in no apparent distress. Behavior is calm, cooperative, appropriate bp for age. Pain: Complains of pain in coccyx. Historical: - Allergies: 11:34 No Known Allergies; bp - Home Meds: 11:34 tamsulosin 0.4 mg oral capsule every 24 hours [Active]; Lisinopril Oral [Active]; bp Allopurinol Oral [Active]; Metoprolol Tartrate Oral [Active]; pantoprazole oral [Active]; - PMHx: 11:34 Hypertensive disorder; PROSTATE; bp - Immunization history:: Adult Immunizations up to date. - Social history:: Smoking status: Patient denies any tobacco usage or history of. - Family history:: not pertinent. Screenin:[facility] ED Fall Risk Assessment (Adult) History of falling in the last 3 months, kc6 including since admission Yes- single mechanical fall (1 pt) Confusion or Disorientation No (0 pts) Intoxicated or Sedated No (0 pts) Impaired Gait No (0 pts) Mobility Assist Device Used No (0 pt) Altered Elimination No (0 pt) Score/Fall Risk Level 0 - 2 = Low Risk. Abuse screen: Denies threats or abuse. Denies injuries from another. Nutritional screening: No deficits noted. Tuberculosis screening: No symptoms or risk factors identified. Assessment: 12:47 General: Appears in no apparent distress. comfortable, Behavior is calm, cooperative, kc6 appropriate for age. Pain: Complains of pain in coccyx Pain does not radiate. Pain currently is 5 out of 10 on a pain scale. Neuro: Level of Consciousness is awake, alert, obeys commands, Oriented to person, place, time, situation, Appropriate for age. Cardiovascular: Capillary refill < 3 seconds. Respiratory: Airway is patent Trachea midline Respiratory effort is even, unlabored, Respiratory pattern is regular, symmetrical. GI: No signs and/or symptoms were reported involving the gastrointestinal system. : No signs and/or symptoms were reported regarding the genitourinary system. EENT: No signs and/or symptoms were reported regarding the EENT system. Derm: No signs and/or symptoms reported regarding the dermatologic system. Skin is intact, is healthy with good turgor, Skin is pink, warm \T\ dry. Musculoskeletal: No signs and/or symptoms reported regarding the musculoskeletal system. Circulation, motion, and sensation intact. Capillary refill < 3 seconds, Range of motion: intact in all extremities. Vital Signs: 11:38 BP 149 / 98; Pulse 64; Resp 16; Temp 98; Pulse Ox 100% ; bp ED Course: 11:29 Patient arrived in ED. im 11:34 Ishan Chamorro MD is Attending Physician. eber 11:38 Triage completed. bp 11:38 Arm band placed on. bp 12:22 Lumbar Spine (3 Views) XRAY In Process Unspecified. EDMS 12:22 Sacrum And Coccyx XRAY In Process Unspecified. EDMS 12:24 X-ray completed. Patient tolerated procedure well. Patient moved back from radiology. mh1 12:47 Martha Luna, MAGED is Primary Nurse. kc6 12:48 Patient has correct armband on for positive identification. Bed in low position. Call kc6 light in reach. Side rails up X 1. 13:16 Jonas Zarate MD is Referral Physician. eber 13:29 No provider procedures requiring assistance completed. Patient did not have IV access kc6 during this emergency room visit. Administered Medications: 12:42 Drug: Ibuprofen PO 600 mg Route: PO; kc6 13:29 Follow up: Response: No adverse reaction; Pain is decreased kc6 Medication: 13:29 VIS not applicable for this client. kc6 Outcome: 13:16 Discharge ordered by MD. velázquez 13:29 Discharged to home ambulatory, with family. kc6 13:29 Condition: improved 13:29 Discharge instructions given to patient, Instructed on discharge instructions, follow up and referral plans. medication usage, Demonstrated understanding of instructions, follow-up care, medications, Prescriptions given X 2. 13:29 Patient left the ED. kc6 Signatures: Dispatcher [employer] EDMS Ishan Chamorro MD MD cha Harvey, Martha 1 Andrea Wilks, MAGED RN Martha Haywood RN RN kc6 Reshma Zaragoza
[2023-05-17 13:53] VITALS: BP 149/98; TEMP 98; O2SAT 100
== END 2023-05-17 13:29 | disposition home or self-care (01) ==
LOC: ER 11:24
DX: S32.2XXA Fracture of coccyx, initial encounter for closed fracture (principal); M43.06 Spondylolysis, lumbar region; I10 Essential (primary) hypertension
CPT/HCPCS: 72100; 72220; 99283